=== PATIENT | male | born 1950 | race Caucasian/White ===

== ENCOUNTER 2020-09-14 18:37 | Observation (INO) | payer MEDICARE ==
--- NOTE | 2020-09-14 19:01 | ED ---
General Adult HPI - General Chief complaint: Abdominal Pain Stated complaint: Abdominal Time Seen by Provider: 09/14/20 18:55 Source: patient, family, RN notes reviewed Mode of arrival: ambulatory Limitations: no limitations - History of Present Illness Initial comments: Patient is a pleasant [age]-year-old male presenting to the emergency Department with complaints of abdominal discomfort. Onset of symptoms was 3-4 days ago. Symptoms worsened since onset. Discomfort is mild at rest but severe with certain movements and position changes. No history of similar symptoms previously. Discomfort was more mid abdomen however now is right lower quadrant. Patient has had some mild nausea and decreased appetite. No vomiting. No constipation or diarrhea. No fever. Patient did have outpatient computed tomography scan done at [facility] for appendicitis. Patient did have stress complication of IV fluid in his right arm however states the swelling has gone down and no significant discomfort at this time. - Related Data Allergies Allergy/AdvReac Type Severity Reaction Status Date / Time No Known Allergies Allergy Verified 09/14/20 18:44 Review of Systems ROS Statement: Those systems with pertinent positive or pertinent negative responses have been documented in the HPI. ROS Other: All systems not noted in ROS Statement are negative. Constitutional: Denies: fever Eyes: Denies: eye pain ENT: Denies: ear pain Respiratory: Denies: cough Cardiovascular: Denies: chest pain Endocrine: Denies: fatigue Gastrointestinal: Reports: abdominal pain, nausea. Denies: vomiting Genitourinary: Denies: dysuria Musculoskeletal: Denies: back pain Skin: Denies: rash Neurological: Denies: weakness Past Medical History Past Medical History: Hypertension History of Any Multi-Drug Resistant Organisms: None Reported Past Surgical History: No Surgical Hx Reported Past Psychological History: No Psychological Hx Reported Smoking Status: Current every day smoker Past Alcohol Use History: None Reported Past Drug Use History: None Reported General Exam Limitations: no limitations General appearance: alert, in no apparent distress Head exam: Present: normocephalic Eye exam: Present: normal appearance Neck exam: Present: normal inspection Respiratory exam: Present: normal lung sounds bilaterally Cardiovascular Exam: Present: regular rate, normal rhythm GI/Abdominal exam: Present: soft, tenderness (Moderate tenderness right lower quadrant). Absent: distended, guarding, rebound, rigid Extremities exam: Present: normal inspection Neurological exam: Present: alert Psychiatric exam: Present: normal affect, normal mood Skin exam: Present: normal color Course Vital Signs 09/14/20 18:41 Temperature 97.7 F Pulse Rate 83 Respiratory 20 Rate Blood Pressure 142/68 O2 Sat by Pulse 98 Oximetry - Reevaluation(s) Reevaluation #1: 09/14/20 19:05 Patient updated on results and plan. Dr. Dorantes paged for surgical call. Medical Decision Making - Medical Decision Making Case was discussed with Dr. Dorantes, who will admit and come evaluate for possible surgery today. - Radiology Data Radiology results: report reviewed (From [facility]: CT abdomen and pelvis shows dilated appendix 1.5 cm with infiltration of. Appendiceal fat suggesting acute appendicitis.) Disposition Clinical Impression: Acute appendicitis Disposition: ADMITTED IP TO THIS HOSP Is patient prescribed a controlled substance at d/c from ED?: No Referrals: Regino Lassiter NPC [Primary Care Provider] - 1-2 days Decision Time: 19:06
[2020-09-14] MEDS ORDERED: PANTOPRAZOLE 40 MG/10 ML VIAL IVP STA (19:02)
[2020-09-14] MEDS ORDERED: SODIUM CHLORIDE 0.9% 1,000 ML IV STA (19:02)
[2020-09-14] MEDS ORDERED: NALOXONE 0.4 MG/ML 1 ML VIAL IV PRN (19:31)
[2020-09-14] MEDS ORDERED: MORPHINE SULFATE 4 MG/ML SYRINGE IV PRN (19:31)
[2020-09-14] MEDS ORDERED: PIPERACILLIN-TAZOBACTAM 3.375 GM in SODIUM CHLORIDE 0.9% 100 ML IVPB STA (19:34)
[2020-09-14 19:53] LABS: Basophils % (A) 0 %; Eosinophils # (A) 0.2 k/uL (0-0.7); Eosinophils % (A) 2 %; HCT 38.8 % (39.0-53.0); HGB 13.7 gm/dL (13.0-17.5); Lymphocytes # (A) 1.4 k/uL (1.0-4.8); Lymphocytes % (A) 14 %; MCH 30.5 pg (25.0-35.0); MCHC 35.3 g/dL (31.0-37.0); MCV 86.4 fL (80.0-100.0); Mean Platelet Volume 7.4; Monocytes # (A) 0.9 k/uL (0-1.0); Monocytes % (A) 8 %; Neutrophils # (A) 7.9 k/uL (1.3-7.7); Neutrophils % (A) 74 %; Platelet Count 351 k/uL (150-450); RBC 4.49 m/uL (4.30-5.90); RDW 12.6 % (11.5-15.5); WBC 10.6 k/uL (3.8-10.6)
[2020-09-14 20:02] LABS: INR 0.9 (<1.2); Partial Thromboplastin Time 25.9 sec (22.0-30.0); Prothrombin Time 9.9 sec (9.0-12.0)
[2020-09-14 20:03] LABS: ALT 20 U/L (4-49); AST 24 U/L (17-59); African American GFR (CKD) >90 (>60 ml/min/1.73 sqM); Albumin 4.3 g/dL (3.5-5.0); Alkaline Phosphatase 105 U/L (38-126); Amylase 39 U/L (30-110); Anion Gap 11 mmol/L; Blood Urea Nitrogen 15 mg/dL (9-20); Calcium 9.8 mg/dL (8.4-10.2); Carbon Dioxide 25 mmol/L (22-30); Chloride 103 mmol/L (98-107); Glucose 103 mg/dL (74-99); Lipase 26 U/L (23-300); Non-African American GFR(CKD) >90 (>60 ml/min/1.73 sqM); Potassium 3.6 mmol/L (3.5-5.1); Sodium 139 mmol/L (137-145); Total Bilirubin 0.5 mg/dL (0.2-1.3); Total Protein 7.2 g/dL (6.3-8.2)
[2020-09-15] MEDS: PIPERACILLIN-TAZOBACTAM 3.375 GM in SODIUM CHLORIDE 0.9% 100 ML IVPB SCH ×2 (01:35→11:08)
[2020-09-15] MEDS ORDERED: SODIUM CHLORIDE 0.9% 300 ML IV ONE (06:06)
--- NOTE | 2020-09-15 06:06 | P.GSHP ---
History of Present Illness H&P Date: 09/15/20 Chief Complaint: Acute appendicitis 70-year-old male here in the hospital for acute appendicitis. Patient had an outpatient CAT scan performed at an outside hospital and came to the ER yesterday evening. Pain began 4-5 days ago. Was initially more vague in location now on the right lower quadrant. No fevers. Some nausea. No vomiting. Appetite diminished. No change in bowel habits. No history of similar events. CAT scan shows a thickened appendix diffusely from the tip to the base. There are a few small calcifications in the mesentery however no obvious lymphadenopathy is seen. There is no evidence of tumor at the base of the appendix at this time by CAT scan. He did have a colonoscopy 1 year ago he says was normal. - Review of Systems Comment: The patient denies any acute changes in vision or hearing, no dysphagia or odynophagia, no chest pain or shortness of breath, no dysuria or hematuria, no headache, no runny nose, no rectal bleeding or melena, no unexplained weight loss Past Medical History Past Medical History: Hypertension History of Any Multi-Drug Resistant Organisms: None Reported Past Surgical History: Back Surgery Additional Past Surgical History / Comment(s): Bone spur between L4-L5 Past Anesthesia/Blood Transfusion Reactions: No Reported Reaction Past Psychological History: No Psychological Hx Reported Smoking Status: Current every day smoker Past Alcohol Use History: None Reported Past Drug Use History: None Reported Medications and Allergies Home Medications Medication Instructions Recorded Confirmed Type Aspirin EC [Ecotrin] 325 mg PO DAILY 09/14/20 09/14/20 History Losartan Potassium 100 mg PO DAILY 09/14/20 09/14/20 History Multivit-Min/FA/Lycopen/Lutein 1 tab PO DAILY 09/14/20 09/14/20 History [Centrum Silver Men Tablet] Sertraline HCl [Zoloft] 25 mg PO DAILY 09/14/20 09/14/20 History amLODIPine [Norvasc] 10 mg PO DAILY 09/14/20 09/14/20 History atenoloL [Atenolol] 25 mg PO DAILY 09/14/20 09/14/20 History hydroCHLOROthiazide 50 mg PO DAILY 09/14/20 09/14/20 History Allergies Allergy/AdvReac Type Severity Reaction Status Date / Time No Known Allergies Allergy Verified 09/14/20 19:45 Surgical - Exam Vital Signs Temp Pulse Resp BP Pulse Ox 97.7 F 83 20 142/68 98 09/14/20 18:41 09/14/20 18:41 09/14/20 18:41 09/14/20 18:41 09/14/20 18:41 Physical exam: General: Well-developed, well-nourished HEENT: Normocephalic, sclerae nonicteric Abdomen: Right lower quadrant tenderness, nondistended Extremities: No edema Neuro: Alert and oriented Results - Labs 09/14/20 19:36 09/14/20 19:36 Abnormal Lab Results - Last 24 Hours (Table) 09/14/20 09/14/20 Range/Units 19:36 19:36 Hct 38.8 L (39.0-53.0) % Neutrophils # 7.9 H (1.3-7.7) k/uL Creatinine 0.59 L (0.66-1.25) mg/dL Glucose 103 H (74-99) mg/dL Diabetes panel 09/14/20 Range/Units 19:36 Sodium 139 (137-145) mmol/L Potassium 3.6 (3.5-5.1) mmol/L Chloride 103 (98-107) mmol/L Carbon Dioxide 25 (22-30) mmol/L BUN 15 (9-20) mg/dL Creatinine 0.59 L (0.66-1.25) mg/dL Glucose 103 H (74-99) mg/dL Calcium 9.8 (8.4-10.2) mg/dL AST 24 (17-59) U/L ALT 20 (4-49) U/L Alkaline Phosphatase 105 (38-126) U/L Total Protein 7.2 (6.3-8.2) g/dL Albumin 4.3 (3.5-5.0) g/dL Calcium panel 09/14/20 Range/Units 19:36 Calcium 9.8 (8.4-10.2) mg/dL Albumin 4.3 (3.5-5.0) g/dL Pituitary panel 09/14/20 Range/Units 19:36 Sodium 139 (137-145) mmol/L Potassium 3.6 (3.5-5.1) mmol/L Chloride 103 (98-107) mmol/L Carbon Dioxide 25 (22-30) mmol/L BUN 15 (9-20) mg/dL Creatinine 0.59 L (0.66-1.25) mg/dL Glucose 103 H (74-99) mg/dL Calcium 9.8 (8.4-10.2) mg/dL Adrenal panel 09/14/20 Range/Units 19:36 Sodium 139 (137-145) mmol/L Potassium 3.6 (3.5-5.1) mmol/L Chloride 103 (98-107) mmol/L Carbon Dioxide 25 (22-30) mmol/L BUN 15 (9-20) mg/dL Creatinine 0.59 L (0.66-1.25) mg/dL Glucose 103 H (74-99) mg/dL Calcium 9.8 (8.4-10.2) mg/dL Total Bilirubin 0.5 (0.2-1.3) mg/dL AST 24 (17-59) U/L ALT 20 (4-49) U/L Alkaline Phosphatase 105 (38-126) U/L Total Protein 7.2 (6.3-8.2) g/dL Albumin 4.3 (3.5-5.0) g/dL Assessment and Plan (1) Acute appendicitis Narrative/Plan: Will proceed with laparoscopic, possible open appendectomy at this time. Risks of bleeding, infection, abscess, bladder and bowel injury, conversion to an open procedure, possible need for further surgeries reviewed. He understands and wishes to proceed. Current Visit: Yes Status: Acute Code(s): K35.80 - UNSPECIFIED ACUTE APPENDICITIS SNOMED Code(s): 23481883
[2020-09-15] MEDS ORDERED: PHENYLEPHRINE-0.9% NACL SYG 1,000 MCG/10 ML SYRINGE ONE (06:07)
[2020-09-15] MEDS ORDERED: DEXAMETHASONE SOD PHOSPHATE 10 MG/ML 1 ML VIAL ONE (06:07)
[2020-09-15] MEDS ORDERED: ONDANSETRON 4 MG/2 ML VIAL ONE (06:07)
[2020-09-15] MEDS ORDERED: fentaNYL (PF) 50 MCG/ML 2 ML AMP ONE (06:07)
[2020-09-15] MEDS ORDERED: GLYCOPYRROLATE 0.2 MG/ML 2 ML VIAL ONE (06:07)
[2020-09-15] MEDS ORDERED: NEOSTIGMINE 1 MG/ML 10 ML VIAL ONE (06:07)
[2020-09-15] MEDS ORDERED: SUCCINYLCHOLINE CHLORIDE 100 MG/5 ML SYR IV ONE (06:07)
[2020-09-15] MEDS ORDERED: KETOROLAC 15 MG/ML 1 ML VIAL ONE (06:07)
[2020-09-15] MEDS ORDERED: MIDAZOLAM 2 MG/2 ML VIAL ONE (06:07)
[2020-09-15] MEDS ORDERED: PROPOFOL 10 MG/ML 20 ML VIAL IV ONE (06:07)
[2020-09-15] MEDS ORDERED: LIDOCAINE 1% INJ 10MG/ML (20 ML MDV) ONE (06:07)
[2020-09-15] MEDS ORDERED: ROCURONIUM 10 MG/ML (5 ML VIAL) IV ONE (06:07)
[2020-09-15] MEDS ORDERED: BUPIVACAINE (PF) 0.5% 30 ML VIAL SQ ONE ×2 (06:22)
[2020-09-15] MEDS ORDERED: LACTATED RINGERS 1,000 ML IV ONE (06:22)
[2020-09-15] MEDS ORDERED: HYDROmorphone 0.5 MG/0.5 ML SYRINGE IVP ONE ×2 (07:16→07:30)
[2020-09-15] MEDS ORDERED: ACETAMINOPHEN TAB 325 MG TAB PO PRN (07:16)
[2020-09-15] MEDS ORDERED: HYDROmorphone 0.5 MG/0.5 ML SYRINGE IVP PRN (07:16)
[2020-09-15] MEDS ORDERED: HYDROcodone/APAP 5-325MG 1 EACH TAB PO PRN (07:16)
[2020-09-15] MEDS ORDERED: ONDANSETRON 4 MG/2 ML VIAL IVP PRN (07:16)
--- NOTE | 2020-09-15 07:21 | P.OP ---
Date of Procedure: 09/15/20 Procedure(s) Performed: PREOPERATIVE DIAGNOSIS: Acute appendicitis POSTOPERATIVE DIAGNOSIS: Same PROCEDURE: Laparoscopic appendectomy SURGEON: Rafael EBL: 5 mL ANESTHESIA: General COMPLICATIONS: None OPERATIVE PROCEDURE: The patient was brought and placed on the operating table in the supine position. The patient was placed under general anesthesia. The abdomen was prepped and draped in the usual sterile fashion. A small vertical infraumbilical incision was made. The fascia was retracted anteriorly with Lewis forceps. The Veress needle was advanced into the peritoneal cavity. The saline drop test was normal. Insufflation took place to 15 mmHg. A 5 mm trocar was then placed. An additional 5 mm suprapubic trocar was placed under direct visualization as well as a 12 mm left lower quadrant trocar under direct visualization. The appendix was inspected. It was acutely inflamed. The mesoappendix was dissected using the LigaSure device. The inflammatory changes extended into the base of the appendix. For that reason the stapler was fired slightly more proximal base of the appendix. We stayed well away from the ileocecal valve. The area was then irrigated. No further purulence or bleeding was seen. The appendix was brought out of the peritoneal cavity through the left lower quadrant trocar site with an Endo Catch bag. The fascia at the 12 mm site was closed using a Alon-Itz 0 Vicryl stitch. The skin at all 3 sites was closed using 4-0 Monocryl sutures. Skin glue was then applied. DISPOSITION: Stable to recovery room
[2020-09-15 07:30] VITALS: RESP 16
[2020-09-15] MEDS ORDERED: HEPARIN SODIUM,PORCINE/PF 5,000 UNIT/0.5 ML SYRINGE SQ SCH (08:00)
[2020-09-15 08:27] VITALS: TEMP 97.4
[2020-09-15] MEDS ORDERED: PANTOPRAZOLE 40 MG/10 ML VIAL IV SCH (09:00)
[2020-09-15] MEDS ORDERED: DOCUSATE 100 MG CAP PO SCH (09:00)
[2020-09-15 10:30] VITALS: BP 134/73; PULSE 75
--- NOTE | 2020-09-15 10:48 | P.CONS ---
History of Present Illness - Reason for Consult Essential hypertension - History of Present Illness Patient is a pleasant 70-year-old male came in with abdominal pain found to have acute appendicitis patient underwent appendectomy. Patient is presently on Zosyn. Patient does have history of hypertension is in for aneurysm medications patient didn't receive any of these medications yet. REVIEW OF SYSTEMS: CONSTITUTIONAL: No fever, no malaise, no fatigue. HEENT: No recent visual problems or hearing problems. Denied any sore throat. CARDIOVASCULAR: No chest pain, orthopnea, PND, no palpitations, no syncope. PULMONARY: No shortness of breath, no cough, no hemoptysis. GASTROINTESTINAL: No diarrhea, no nausea, no vomiting, no abdominal pain. NEUROLOGICAL: No headaches, no weakness, no numbness. HEMATOLOGICAL: Denies any bleeding or petechiae. GENITOURINARY: Denies any burning micturition, frequency, or urgency. MUSCULOSKELETAL/RHEUMATOLOGICAL: Denies any joint pain, swelling, or any muscle pain. ENDOCRINE: Denies any polyuria or polydipsia. The rest of the 14-point review of systems is negative. PHYSICAL EXAMINATION: GENERAL: The patient is alert and oriented x3, not in any acute distress. Well developed, well nourished. HEENT: Pupils are round and equally reacting to light. EOMI. No scleral icterus. No conjunctival pallor. Normocephalic, atraumatic. No pharyngeal erythema. No thyromegaly. CARDIOVASCULAR: S1 and S2 present. No murmurs, rubs, or gallops. PULMONARY: Chest is clear to auscultation, no wheezing or crackles. ABDOMEN: Soft, nontender, nondistended, normoactive bowel sounds. No palpable organomegaly. Surgical site areas appear to be clean MUSCULOSKELETAL: No joint swelling or deformity. EXTREMITIES: No cyanosis, clubbing, or pedal edema. NEUROLOGICAL: Gross neurological examination did not reveal any focal deficits. SKIN: No rashes. Assessment and plan -Essential hypertension: Patient is expected to have perioperative hypotension at home it appears like patient blood pressures are already low sweaty, and to discontinue hydrochlorothiazide completely cut down the dose of losartan. For next couple days ago under the patient to hold off losartan and check the blood pressures at home if they start going up patient can start taking this m edication patient can resume amlodipine and atenolol. Patient most probably will be discharged today unfortunately did not have enough time to titrate his medications here as an inpatient and this can be done as an outpatient. Low- salt diet was advised -Acute appendicitis: Status post appendectomy and patient is on Zosyn [place]- nicotine use: Counseling was provided DVT prophylaxis: Past Medical History Past Medical History: Hypertension History of Any Multi-Drug Resistant Organisms: None Reported Past Surgical History: Back Surgery Additional Past Surgical History / Comment(s): Bone spur between L4-L5 Past Anesthesia/Blood Transfusion Reactions: No Reported Reaction Past Psychological History: No Psychological Hx Reported Smoking Status: Current every day smoker Past Alcohol Use History: None Reported Past Drug Use History: None Reported Medications and Allergies Home Medications Medication Instructions Recorded Confirmed Type Aspirin EC [Ecotrin] 325 mg PO DAILY 09/14/20 09/14/20 History Losartan Potassium 100 mg PO DAILY 09/14/20 09/14/20 History Multivit-Min/FA/Lycopen/Lutein 1 tab PO DAILY 09/14/20 09/14/20 History [Centrum Silver Men Tablet] Sertraline HCl [Zoloft] 25 mg PO DAILY 09/14/20 09/14/20 History amLODIPine [Norvasc] 10 mg PO DAILY 09/14/20 09/14/20 History atenoloL [Atenolol] 25 mg PO DAILY 09/14/20 09/14/20 History hydroCHLOROthiazide 50 mg PO DAILY 09/14/20 09/14/20 History oxyCODONE HCL [OxyIR] 5 mg PO Q6H PRN 3 Days #6 tab 09/15/20 Rx Allergies Allergy/AdvReac Type Severity Reaction Status Date / Time No Known Allergies Allergy Verified 09/14/20 19:45 Physical Exam Vitals: Vital Signs Temp Pulse Pulse Pulse Resp BP BP 09/15/20 10:20 75 09/15/20 10:05 74 09/15/20 09:50 74 09/15/20 09:35 75 09/15/20 09:20 78 09/15/20 09:05 74 09/15/20 08:40 76 09/15/20 08:21 97.4 F L 64 16 09/15/20 07:35 69 16 09/15/20 07:20 60 16 09/15/20 07:06 98.1 F 99 12 09/15/20 05:18 98.1 F 82 17 119/66 09/15/20 01:42 98.4 F 67 17 110/64 09/14/20 21:30 18 09/14/20 21:27 98.2 F 77 18 140/67 09/14/20 21:13 98.4 F 79 16 139/78 09/14/20 18:41 97.7 F 83 20 142/68 BP Pulse Ox 09/15/20 10:20 134/73 95 09/15/20 10:05 129/74 95 09/15/20 09:50 133/78 96 09/15/20 09:35 135/79 96 09/15/20 09:20 146/71 96 09/15/20 09:05 135/70 95 09/15/20 08:40 127/71 94 L 09/15/20 08:21 122/72 93 L 09/15/20 07:35 141/68 94 L 09/15/20 07:20 138/75 100 09/15/20 07:06 143/84 99 09/15/20 05:18 95 09/15/20 01:42 94 L 09/14/20 21:30 09/14/20 21:27 98 09/14/20 21:13 98 09/14/20 18:41 98 Intake and Output 09/14/20 09/15/20 09/15/20 22:59 06:59 14:59 Intake Total 600 100 Output Total 2 Balance 598 100 Intake: IV 600 100 Output: Estimated Blood Loss 2 Other: Voiding Method Toilet Weight 77.111 kg Results CBC & Chem 7: 09/14/20 19:36 09/14/20 19:36 Labs: Abnormal Lab Results - Last 24 Hours (Table) 09/14/20 09/14/20 Range/Units 19:36 19:36 Hct 38.8 L (39.0-53.0) % Neutrophils # 7.9 H (1.3-7.7) k/uL Creatinine 0.59 L (0.66-1.25) mg/dL Glucose 103 H (74-99) mg/dL
[2020-09-16] MEDS ORDERED: atenoloL 25 MG TAB PO SCH (09:00)
[2020-09-16] MEDS ORDERED: LOSARTAN 50 MG TAB PO SCH (09:00)
[2020-09-16] MEDS ORDERED: MULTIVITAMINS, THERA 1 EACH TAB PO SCH (09:00)
[2020-09-16] MEDS ORDERED: SERTRALINE 25 MG TAB PO SCH (09:00)
[2020-09-16] MEDS ORDERED: ASPIRIN 325 MG TAB PO SCH (09:00)
== END 2020-09-15 14:02 | disposition home or self-care (01) ==
LOC: EC 18:37 → 4SSUR 19:32
PROVIDERS: ADMIT Surgery; ATTEND Surgery
DX: K35.80 Unspecified acute appendicitis (principal); I10 Essential (primary) hypertension; F17.200 Nicotine dependence, unspecified, uncomplicated; Z79.82 Long term (current) use of aspirin; Z98.890 Other specified postprocedural states; Z79.899 Other long term (current) drug therapy
CPT/HCPCS: 96374; 99284; 80053; 82150; 83605; 83690; 85025; 85610; 85730; 87040; 44970; G0378 ×2; J2543 ×2; J2250; J1100; J2710; J2405; J2001; J3010; J1885; J2370; J0330; J2704; C9113 ×2; J1170; 88304

== ENCOUNTER 2023-06-07 13:28 | Inpatient (IN) | payer MEDICARE ==
--- NOTE | 2023-06-07 14:29 | ED ---
General Adult HPI - General Chief complaint: ENT Stated complaint: Can't swallow SOB Time Seen by Provider: 06/07/23 13:43 Source: patient, family, RN notes reviewed, old records reviewed Mode of arrival: ambulatory Limitations: no limitations - History of Present Illness Initial comments: 72-year-old male with recent diagnosis of dermatomyositis presenting for evaluation of shortness of breath and difficulty swallowing. Patient states that he is currently on 20 mg of prednisone daily. He was diagnosed with dermatomyositis through skin biopsy performed several weeks prior. He has developed some mild shortness of breath as well as upper respiratory symptoms including nasal congestion. He states he is having increased difficulty swallowing even liquids. - Related Data Home Medications Medication Instructions Recorded Confirmed Aspirin EC [Ecotrin] 325 mg PO DAILY 09/14/20 09/14/20 Losartan Potassium 100 mg PO DAILY 09/14/20 09/14/20 Mv-Min/Folic/K1/Lycopen/Lutein 1 tab PO DAILY 09/14/20 09/14/20 [Centrum Silver Men Tablet] Sertraline HCl [Zoloft] 25 mg PO DAILY 09/14/20 09/14/20 amLODIPine [Norvasc] 10 mg PO DAILY 09/14/20 09/14/20 atenoloL 25 mg PO DAILY 09/14/20 09/14/20 hydroCHLOROthiazide 50 mg PO DAILY 09/14/20 09/14/20 Previous Rx's Medication Instructions Recorded oxyCODONE HCL [OxyIR] 5 mg PO Q6H PRN 3 Days #6 tab 09/15/20 Allergies Allergy/AdvReac Type Severity Reaction Status Date / Time No Known Allergies Allergy Verified 06/07/23 13:38 Review of Systems ROS Statement: Those systems with pertinent positive or pertinent negative responses have been documented in the HPI. ROS Other: All systems not noted in ROS Statement are negative. Past Medical History Past Medical History: Hypertension History of Any Multi-Drug Resistant Organisms: None Reported Past Surgical History: Back Surgery Additional Past Surgical History / Comment(s): Bone spur between L4-L5 Past Anesthesia/Blood Transfusion Reactions: No Reported Reaction Past Psychological History: No Psychological Hx Reported Smoking Status: Current every day smoker Past Alcohol Use History: None Reported Past Drug Use History: None Reported General Exam Limitations: no limitations General appearance: alert, in no apparent distress Head exam: Present: atraumatic, normocephalic Eye exam: Present: normal appearance, PERRL ENT exam: Present: normal oropharynx Neck exam: Present: normal inspection. Absent: tenderness, meningismus Respiratory exam: Present: normal lung sounds bilaterally. Absent: respiratory distress, wheezes Cardiovascular Exam: Present: regular rate, normal rhythm GI/Abdominal exam: Present: soft. Absent: distended, tenderness Neurological exam: Present: alert, oriented X3, CN II-XII intact. Absent: motor sensory deficit Skin exam: Present: warm, intact, erythema (Rash) Course Vital Signs 06/07/23 13:33 Temperature 98.0 F Pulse Rate 72 Respiratory 20 Rate Blood Pressure 135/69 O2 Sat by Pulse 100 Oximetry Medical Decision Making - Medical Decision Making Was pt. sent in by a medical professional or institution (Dr. PA, COMMUNITY HEALTH SPECIALIST, urgent care, hospital, or fci...) When possible be specific @ -No Did you speak to anyone other than the patient for history (EMS, parent, family, police, friend...)? What history was obtained from this source @ -No Did you review nursing and triage notes (agree or disagree)? Why? @ -I reviewed and agree with nursing and triage notes Were old charts reviewed (outside hosp., previous admission, EMS record, old EKG, old radiological studies, urgent care reports/EKG's, fci records)? Report findings @ -No old charts were reviewed Differential Diagnosis (chest pain, altered mental status, abdominal pain women, abdominal pain men, vaginal bleeding, weakness, fever, dyspnea, syncope, headache, dizziness, GI bleed, back pain, seizure, CVA, palpatations, mental health, musculoskeletal)? @ -Muscle weakness secondary to dermatomyositis, esophageal mass, esophageal dysmotility EKG interpreted by me (3pts min.). @ -As above X-rays interpreted by me (1pt min.). @ -Chest x-ray negative for acute cardiopulmonary findings CT interpreted by me (1pt min.). @ -None done U/S interpreted by me (1pt. min.). @ -None done What testing was considered but not performed or refused? (CT, X-rays, U/S, labs)? Why? @ -None What meds were considered but not given or refused? Why? @ -None Did you discuss the management of the patient with other professionals (professionals i.e. , PA, COMMUNITY HEALTH SPECIALIST, lab, RT, psych nurse, social service technician, laboratory cureman, teacher, helicopter officer, welfare case worker)? Give summary @ -No Was smoking cessation discussed for >3mins.? @ -No Was critical care preformed (if so, how long)? @ -No Were there social determinants of health that impacted care today? How? (Homelessness, low income, unemployed, alcoholism, drug addiction, transportation, low edu. Level, literacy, decrease access to med. care, usp, rehab)? @ -No Was there de-escalation of care discussed even if they declined (Discuss DNR or withdrawal of care, Hospice)? DNR status @ -No What co-morbidities impacted this encounter? (DM, HTN, Smoking, COPD, CAD, Cancer, CVA, ARF, Chemo, Hep., AIDS, mental health diagnosis, sleep apnea, morbid obesity)? @Dermatomyositis Was patient admitted / discharged? Hospital course, mention meds given and route, prescriptions, significant lab abnormalities, going to OR and other pertinent info. @72-year-old male with difficulty swallowing, mild shortness of breath. Patient vital signs are stable. He has been having increased difficulty keeping his medications down including prednisone. Patient given IV fluids and IV steroids in the emergency department. He will benefit from a burst of IV steroids. He will be admitted to internal medicine, case discussed with Dr. Mckay who will accept. Undiagnosed new problem with uncertain prognosis? @ -No Drug Therapy requiring intensive monitoring for toxicity (Heparin, Nitro, Insulin, Cardizem)? @ -No Were any procedures done? @ -No Diagnosis/symptom? @ -[Muscle weakness, difficulty swallowing, dermatomyositis Acute, or Chronic, or Acute on Chronic? @ -Acute on chronic Uncomplicated (without systemic symptoms) or Complicated (systemic symptoms)? @ -Default Side effects of treatment? @ -No Exacerbation, Progression, or Severe Exacerbation? @ -No Poses a threat to life or bodily function? How? (Chest pain, [place], [place], pneumonia, PE, COPD, DKA, ARF, appy, cholecystitis, CVA, Diverticulitis, Homicidal, Suicidal, threat to staff... and all critical care pts) @Low risk at this time - Lab Data Result diagrams: 06/07/23 15:05 06/07/23 15:05 Lab Results 06/07/23 06/07/23 06/07/23 Range/Units 15:05 15:05 15:05 WBC 11.6 H (3.8-10.6) k/uL RBC 4.53 (4.30-5.90) m/uL Hgb 13.9 (13.0-17.5) gm/dL Hct 42.8 (39.0-53.0) % MCV 94.4 (80.0-100.0) fL MCH 30.7 (25.0-35.0) pg MCHC 32.5 (31.0-37.0) g/dL RDW 13.6 (11.5-15.5) % Plt Count 253 (150-450) k/uL MPV 9.0 Neutrophils % 85 % Lymphocytes % 6 % Monocytes % 8 % Eosinophils % 0 % Basophils % 0 % Neutrophils # 9.9 H (1.3-7.7) k/uL Lymphocytes # 0.7 L (1.0-4.8) k/uL Monocytes # 0.9 (0-1.0) k/uL Eosinophils # 0.0 (0-0.7) k/uL Basophils # 0.0 (0-0.2) k/uL Sodium 137 (137-145) mmol/L Potassium 4.9 (3.5-5.1) mmol/L Chloride 107 (98-107) mmol/L Carbon Dioxide 19 L (22-30) mmol/L Anion Gap 11 mmol/L BUN 21 H (9-20) mg/dL Creatinine 0.64 L (0.66-1.25) mg/dL Est GFR (CKD-EPI)AfAm >90 (>60 ml/min/1.73 sqM) Est GFR (CKD-EPI)NonAf >90 (>60 ml/min/1.73 sqM) Glucose 85 (74-99) mg/dL Calcium 9.2 (8.4-10.2) mg/dL Total Bilirubin 1.0 (0.2-1.3) mg/dL AST 99 H (17-59) U/L ALT 48 (4-49) U/L Alkaline Phosphatase 69 (38-126) U/L Creatine Kinase 569 H (55-170) U/L C-Reactive Protein 0.7 (<1.0) mg/dL Total Protein 6.6 (6.3-8.2) g/dL Albumin 3.9 (3.5-5.0) g/dL Urine Color Colorless Urine Appearance Clear (Clear) Urine pH 6.5 (5.0-8.0) Ur Specific [place] 1.009 (1.001-1.035) Urine Protein Negative (Negative) Urine Glucose (UA) Negative (Negative) Urine Ketones Negative (Negative) Urine Blood Negative (Negative) Urine Nitrite Negative (Negative) Urine Bilirubin Negative (Negative) Urine Urobilinogen <2.0 (<2.0) mg/dL Ur Leukocyte Esterase Negative (Negative) Disposition Clinical Impression: Dermatomyositis, Difficulty swallowing pills Disposition: ADMITTED IP TO THIS [facility] Condition: Stable Is patient prescribed a controlled substance at d/c from ED?: No Referrals: Regino Lassiter NPC [Primary Care Provider] - 1-2 days Time of Disposition: 16:14
[2023-06-07] MEDS: SODIUM CHLORIDE 0.9% 1,000 ML IV ONE (15:11)
[2023-06-07 15:26] LABS: Basophils % (A) 0 %; Eosinophils % (A) 0 %; HCT 42.8 % (39.0-53.0); HGB 13.9 gm/dL (13.0-17.5); Lymphocytes # (A) 0.7 k/uL (1.0-4.8); Lymphocytes % (A) 6 %; MCH 30.7 pg (25.0-35.0); MCHC 32.5 g/dL (31.0-37.0); MCV 94.4 fL (80.0-100.0); Monocytes # (A) 0.9 k/uL (0-1.0); Monocytes % (A) 8 %; Neutrophils # (A) 9.9 k/uL (1.3-7.7); Neutrophils % (A) 85 %; Platelet Count 253 k/uL (150-450); RBC 4.53 m/uL (4.30-5.90); RDW 13.6 % (11.5-15.5); WBC 11.6 k/uL (3.8-10.6)
[2023-06-07 15:39] LABS: ALT 48 U/L (4-49); African American GFR (CKD) >90 (>60 ml/min/1.73 sqM); Albumin 3.9 g/dL (3.5-5.0); Anion Gap 11 mmol/L; Blood Urea Nitrogen 21 mg/dL (9-20); C Reactive Protein 0.7 mg/dL (<1.0); Calcium 9.2 mg/dL (8.4-10.2); Carbon Dioxide 19 mmol/L (22-30); Chloride 107 mmol/L (98-107); Creatine Kinase 569 U/L (55-170); Glucose 85 mg/dL (74-99); Non-African American GFR(CKD) >90 (>60 ml/min/1.73 sqM); Sodium 137 mmol/L (137-145); Total Protein 6.6 g/dL (6.3-8.2)
[2023-06-07 15:43] LABS: AST 99 U/L (17-59); Potassium 4.9 mmol/L (3.5-5.1)
[2023-06-07 15:44] LABS: Alkaline Phosphatase 69 U/L (38-126); Appearance,Urine Clear (Clear); Bilirubin,Urine Negative (Negative); Blood,Urine Negative (Negative); Color,Urine Colorless; Glucose,Urine (UA) Negative (Negative); Ketones,Urine Negative (Negative); Leukocyte Esterase,Urine Negative (Negative); Nitrite,Urine Negative (Negative); PH, Urine 6.5 (5.0-8.0); Protein,Urine Negative (Negative); Specific Gravity,Urine 1.009 (1.001-1.035); Urobilinogen,Urine <2.0 mg/dL (<2.0)
--- NOTE | 2023-06-07 16:04 | XR ---
EXAMINATION TYPE: XR chest 2V DATE OF EXAM: 06/07/2023 COMPARISON: NONE TECHNIQUE: PA and lateral views submitted. HISTORY: Shortness of breath FINDINGS: The lungs are clear and there is no pneumothorax, pleural effusion, or focal pneumonia. Heart size normal and no overt failure. Osseous structures demonstrate hypertrophic and degenerative changes of the spine. Postsurgical changes at the thoracolumbar junction. There is ectasia of the aorta. Other e tiologies not excluded. IMPRESSION: 1. No acute process. Retrocardiac density likely reflects ectatic aorta. Short-term follow-up CT of t he chest recommended.
[2023-06-07] MEDS ORDERED: NALOXONE 0.4 MG/ML 1 ML VIAL IV PRN ×2 (16:10→21:13)
[2023-06-07] MEDS: methylPREDNISolone SOD SUCCI 125 MG/2 ML VIAL IV STA (16:52)
[2023-06-07] MEDS: SODIUM CHLORIDE 0.9% 1,000 ML IV SCH (16:52)
[2023-06-07] MEDS: methylPREDNISolone SOD SUCCI 125 MG/2 ML VIAL IV SCH (18:14)
[2023-06-07] MEDS ORDERED: MAG HYDROX/AL HYDROX/SIMETH 30 ML CUP PO PRN (21:13)
[2023-06-07] MEDS ORDERED: oxyCODONE-APAP 5-325MG 1 EACH TAB PO PRN (21:13)
[2023-06-07] MEDS ORDERED: MELATONIN 3 MG TABLET PO PRN (21:13)
[2023-06-07] MEDS ORDERED: ACETAMINOPHEN TAB 325 MG TAB PO PRN (21:13)
[2023-06-07] MEDS ORDERED: ONDANSETRON 4 MG/2 ML VIAL IVP PRN (21:13)
[2023-06-08 07:50] LABS: ALT 44 U/L (4-49); AST 70 U/L (17-59); African American GFR (CKD) >90 (>60 ml/min/1.73 sqM); Albumin 3.4 g/dL (3.5-5.0); Albumin/Globulin Ratio 1.4; Alkaline Phosphatase 79 U/L (38-126); Anion Gap 10 mmol/L; Blood Urea Nitrogen 16 mg/dL (9-20); Carbon Dioxide 18 mmol/L (22-30); Chloride 109 mmol/L (98-107); Globulin 2.4 g/dL; Glucose 119 mg/dL (74-99); Non-African American GFR(CKD) >90 (>60 ml/min/1.73 sqM); Potassium 3.9 mmol/L (3.5-5.1); Sodium 137 mmol/L (137-145); Total Bilirubin 0.5 mg/dL (0.2-1.3); Total Protein 5.8 g/dL (6.3-8.2)
[2023-06-08 12:33] LABS: Erythrocyte Sedimentation Rate 21 mm/Hr (0-20)
[2023-06-08] MEDS ORDERED: RX INFO: IV CONTRAST WAS GIVEN 1 EACH MISC MISCELLANE PRN (13:44)
[2023-06-08] MEDS ORDERED: DEXTROSE 50% SYRINGE 50 ML IVP PRN ×2 (13:46)
[2023-06-08] MEDS: methylPREDNISolone SOD SUCCI 125 MG/2 ML VIAL IV SCH ×2 (14:33→18:45)
[2023-06-08] MEDS: amLODIPine 10 MG TAB PO SCH (14:38)
[2023-06-08] MEDS: atenoloL 25 MG TAB PO SCH (15:52)
--- NOTE | 2023-06-08 16:00 | CT ---
EXAMINATION TYPE: CT chest w con CT DLP: 391.4 mGycm, Automated exposure control for dose reduction was used. DATE OF EXAM: 06/08/2023 3:39 PM COMPARISON: None. CLINICAL INDICATION:Male, 72 years old with history of dysphagia, ectatic aorta; PHH, dysphagia, ecta tic aorta TECHNIQUE: Multiple axial images were obtained through the chest. Sagittal and coronal reformats were created for review. Contrast used:100 ml mL of Isovue 300 with IV Contrast (None if empty) Oral contrast used: (None if empty) FINDINGS: LUNGS/ PLEURA: The lung parenchyma appears unremarkable. AIRWAY: Patent and unremarkable. HEART: Size within normal limits.Increased density within the coronary arteries may relate to scleros is versus vascular stents. MEDIASTINUM: No gross evidence of adenopathy. VASCULATURE: Atherosclerotic calcifications are present throughout the aorta and its branches. MUSCULOSKELETAL: No acute osseous abnormalities. Remote compression deformity L1 vertebral body. SOFT TISSUES/LYMPH NODES: Unremarkable. LOWER NECK: No significant findings. UPPER ABDOMEN: No significant findings. IMPRESSION: 1. No evidence of acute process. 2. Remote compression deformity of the L1 vertebral body with approximately 25% height loss.
[2023-06-08 16:29] LABS: Glucose,Whole Blood 128 mg/dL (70-110)
[2023-06-08] MEDS: INSULIN ASPART (NovoLOG) 100 UNIT/ML VIAL SQ SCH (16:37)
[2023-06-08 20:28] LABS: Glucose,Whole Blood 145 mg/dL (70-110)
[2023-06-08] MEDS: PANTOPRAZOLE 40 MG/10 ML VIAL IVP SCH (20:31)
[2023-06-08] MEDS: HEPARIN SODIUM,PORCINE 5,000 UNIT/ML 1 ML VIAL SQ SCH (20:31)
--- NOTE | 2023-06-08 23:31 | HP ---
HISTORY AND PHYSICAL CHIEF COMPLAINT: Dysphagia. 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 Poly Operator made the diagnosis. The patient does not seem to be at the Poly Operator's care. The patient has some shortness of breath and difficulty swallowing. The patient is currently taking 20 mg of prednisone daily. The patient admitted for evaluation and treatment. The basic evaluation showed elevated WBC and rest of the labs are noted. COVID-19 testing was negative. A chest x-ray, which I reviewed personally showed some increased vascularity and possibly ectatic aorta. There is no history of any fever, rigors, or chills at this time. PAST MEDICAL HISTORY: History of hypertension, history of bladder cancer. Rest of the history and chart is also reviewed. HOME MEDICATIONS: Reviewed include prednisone. Dose and rest of medications reviewed. ALLERGIES: None. FAMILY HISTORY: No history of heart disease or strokes in the family. SOCIAL HISTORY: No history of smoking. REVIEW OF SYSTEMS: Fourteen-point review is negative except as mentioned earlier. PHYSICAL EXAMINATION: VITAL SIGNS: Pulse is 63, blood pressure 140/69, and respirations 16. HEENT: Conjunctivae normal. NECK: No JVD. CARDIOVASCULAR: S1, S2. RESPIRATION: Breath sounds diminished at the bases. No rhonchi, no crackles. ABDOMEN: Soft, nontender. LEGS: No edema. No swelling. NERVOUS SYSTEM: Nonfocal. SKIN: No ulcer, rash, bleeding. JOINTS: No active deforming arthropathy. LABORATORY DATA: WBC 11.6, otherwise, AST is 70. Rest of the labs are noted. ASSESSMENT: 1. Dysphagia for evaluation. 2. Recently diagnosed dermatitis. 3. Dermatomyositis. 4. Elevated AST. 5. Elevated creatine kinase with possible rhabdomyolysis. 6. Hypertension. 7. History of bladder cancer. 8. Ectatic aorta. 9. Degenerative joint disease. 10.History of nicotine dependence. RECOMMENDATIONS AND DISCUSSION: This 72-year-old gentleman presented with multiple complex medical issues. We will monitor the patient closely. We will recommend high-dose IV steroids. I would also recommend a barium swallow with speech pathology, dermatology evaluation. I would also recommend CT scan of the chest with contrast to rule out the possibility of ectatic aorta and other abnormalities. Otherwise, prognosis guarded because of multiple complex medical problems. See orders for details. MMODL / IJN: [id number] /
[2023-06-09 06:31] LABS: Glucose,Whole Blood 144 mg/dL (70-110)
[2023-06-09] MEDS: LOSARTAN 50 MG TAB PO SCH (07:49)
[2023-06-09] MEDS: MULTIVITAMINS, THERA 1 EACH TAB PO SCH (07:49)
[2023-06-09] MEDS: ASPIRIN 81 MG PO SCH (07:49)
[2023-06-09 08:25] LABS: Basophils # (A) 0 X 10*3/uL (0.00-0.10); Basophils % (A) 0 %; Eosinophils # (A) 0 X 10*3/uL (0.04-0.35); Eosinophils % (A) 0 %; HCT 33.4 % (39.6-50.0); HGB 11.2 g/dL (13.0-17.0); Lymphocytes # (A) 0.64 X 10*3/uL (0.90-5.00); Lymphocytes % (A) 9.3 %; MCH 30.5 pg (27.0-32.0); MCHC 33.5 g/dL (32.0-37.0); Mean Platelet Volume 10.8 FL (9.5-12.2); Monocytes # (A) 0.45 X 10*3/uL (0.20-1.00); Monocytes % (A) 6.6 %; NRBC Per 100 WBC 0 X 10*3/uL (0.00-0.01); Neutrophils # (A) 5.73 X 10*3/uL (1.80-7.70); Neutrophils % (A) 83.5 %; Platelet Count 207 X 10*3/uL (140-440); RBC 3.67 X 10*6/uL (4.40-5.60); RDW 13.9 % (11.5-14.5); WBC 6.86 X 10*3/uL (4.50-10.00)
[2023-06-09 08:44] LABS: Blood Urea Nitrogen 16.1 mg/dL (9.0-27.0); Calcium 9.2 mg/dL (8.7-10.3); Carbon Dioxide 21.4 mmol/L (21.6-31.8); Chloride 106 mmol/L (96-109); Glucose 155 mg/dL (70-110); Potassium 3.9 mmol/L (3.5-5.5); Sodium 138 mmol/L (135-145)
[2023-06-09] MEDS ORDERED: atenoloL 25 MG TAB PO SCH (09:00)
[2023-06-09] MEDS ORDERED: SERTRALINE 25 MG TAB PO SCH (09:00)
[2023-06-09] MEDS ORDERED: amLODIPine 10 MG TAB PO SCH (09:00)
[2023-06-09 11:29] LABS: Glucose,Whole Blood 144 mg/dL (70-110)
--- NOTE | 2023-06-09 13:27 | PN ---
PROGRESS NOTE DATE OF SERVICE: 06/09/2023 This 72-year-old gentleman, admitted with dysphagia and dermatomyositis, on high-dose IV steroids. The patient has some weakness. Speech Pathology following the patient closely with modified barium swallow. Otherwise, CT scan chest did not show any acute abnormality. Remote compression fracture of L1 was suspected with 25% height loss. PAST MEDICAL HISTORY: Reviewed. REVIEW OF SYSTEMS: Fourteen-point review is negative except as mentioned earlier. CURRENT MEDICATIONS: Reviewed, include IV steroids, doses and rest of medications noted. PHYSICAL EXAM: VITAL SIGNS: Pulse is 54, blood pressure 139/59, respirations 14. CHEST: Clear to auscultation. CARDIOVASCULAR: S1, S2. ABDOMEN: Soft and nontender. NERVOUS SYSTEM: Mild diffuse weakness, proximal. LABORATORY DATA: WBC 11.2. Rest of the labs are noted. ESR is 21 and CK is 569. ASSESSMENT: 1. Dysphagia for evaluation. 2. Recent diagnosis of dermatomyositis. 3. Elevated AST. 4. Elevated creatine kinase with possible mild rhabdomyolysis. 5. Hypertension. 6. History of bladder cancer. 7. Ectatic aorta. 8. Degenerative joint disease. 9. History of nicotine dependence. RECOMMENDATIONS AND DISCUSSION: Recommend to continue current management. Continue symptomatic treatment. Otherwise, we will proceed with modified barium swallow with the speech, and we will continue with rest of the medications. Will repeat CK. Guarded prognosis. Further recommendations to follow. See orders for further details. MMODL / IJN: [id number] /
--- NOTE | 2023-06-09 14:13 | P.GSCN ---
History of Present Illness Consult date: 06/09/23 History of present illness: CHIEF COMPLAINT: Dysphagia HISTORY OF PRESENT ILLNESS: This is a 72-year-old male who presented to the hospital with complaints of dysphagia for the past 2 weeks. Patient reports that symptoms have worsened over the last 3 days. Symptoms are worse with solid foods. He reports that it feels like things are sticking on 1 side of his throa t. Patient has had recent diagnosis of dermatomyositis. Patient does follow with a toe puncher. He is currently on IV steroids. Patient denies ever having an EGD. He denies any abdominal pain. Denies any nausea or vomiting. Patient currently tolerating a pured diet. PAST MEDICAL HISTORY: Bladder cancer, completed treatment in April 2023 PAST SURGICAL HISTORY: See below MEDICATIONS: See below ALLERGIES: See below SOCIAL HISTORY: No illicit drug use. REVIEW OF SYSTEMS: CONSTITUTIONAL: Denies fever or chills. HEENT: Denies blurred vision, vision changes, or eye pain. Denies hemoptysis CARDIOVASCULAR: Denies chest pain or pressure. RESPIRATORY: No shortness of breath. GASTROINTESTINAL: See HPI for pertinent findings HEMATOLOGIC: Denies bleeding disorders. GENITOURINARY: Denies any blood in urine or increased urinary frequency. SKIN: Denies pruitis. Denies rash. PHYSICAL EXAM: VITAL SIGNS: Reviewed GENERAL: Well-developed in no acute distress. HEENT: White plaques noted on tongue ABDOMEN: Soft. Nondistended. Nontender NEUROLOGIC: Alert and oriented. Cranial nerves II through XII grossly intact. LABORATORY DATA: WBC 11.6 down to 6.86 Hgb 11.2 platelets 207 Sodium 138 potassium 3.9 creatinine 0.5 IMAGING: Chest CT no evidence of acute process. Remote compression deformity at L1 vertebral body ASSESSMENT: 1. Dysphagia 2. History of dermatomyositis 3. Oral candidiasis PLAN: -Patient scheduled for EGD tomorrow with Dr. Banegas -N.p.o. after midnight -Follow-up on MBS results -Start nystatin swish and swallow for oral candidiasis Physician Electric Fork Operator note has been reviewed by physician. Signing provider agrees with the documented findings, assessment, and plan of care. Past Medical History Past Medical History: Cancer, Hypertension Additional Past Medical History / Comment(s): bladder CA 2022 History of Any Multi-Drug Resistant Organisms: None Reported Past Surgical History: Appendectomy, Back Surgery Additional Past Surgical History / Comment(s): Bone spur between L4-L5 Past Anesthesia/Blood Transfusion Reactions: No Reported Reaction Past Psychological History: No Psychological Hx Reported Smoking Status: Former smoker Past Alcohol Use History: None Reported Past Drug Use History: None Reported Medications and Allergies Home Medications Medication Instructions Recorded Confirmed Type Losartan Potassium 100 mg PO DAILY 09/14/20 06/07/23 History Mv-Min/Folic/K1/Lycopen/Lutein 1 tab PO DAILY 09/14/20 06/07/23 History [Centrum Silver Men Tablet] Sertraline HCl [Zoloft] 25 mg PO DAILY 09/14/20 06/07/23 History amLODIPine [Norvasc] 10 mg PO DAILY 09/14/20 06/07/23 History atenoloL 25 mg PO DAILY 09/14/20 06/07/23 History Aspirin EC [Ecotrin Low Dose] 81 mg PO DAILY 06/07/23 06/07/23 History predniSONE 10 mg PO BID 06/07/23 06/07/23 History Allergies Allergy/AdvReac Type Severity Reaction Status Date / Time No Known Allergies Allergy Verified 06/07/23 17:22 Surgical - Exam Vital Signs Temp Pulse Resp BP Pulse Ox 98.0 F 72 20 135/69 100 06/07/23 13:33 06/07/23 13:33 06/07/23 13:33 06/07/23 13:33 06/07/23 13:33 Results - Labs 06/09/23 03:55 06/09/23 03:55 Abnormal Lab Results - Last 24 Hours (Table) 06/08/23 06/08/23 06/09/23 Range/Units 16:27 20:26 03:55 RBC 3.67 L (4.40-5.60) X 10*6/uL Hgb 11.2 L (13.0-17.0) g/dL Hct 33.4 L (39.6-50.0) % Lymphocytes # 0.64 L (0.90-5.00) X 10*3/uL Eosinophils # 0 L (0.04-0.35) X 10*3/uL Carbon Dioxide (21.6-31.8) mmol/L Creatinine (0.6-1.5) mg/dL BUN/Creatinine Ratio (12.00-20.00) Ratio Glucose (70-110) mg/dL POC Glucose (mg/dL) 128 H 145 H (70-110) mg/dL 06/09/23 06/09/23 06/09/23 Range/Units 03:55 06:30 11:27 RBC (4.40-5.60) X 10*6/uL Hgb (13.0-17.0) g/dL Hct (39.6-50.0) % Lymphocytes # (0.90-5.00) X 10*3/uL Eosinophils # (0.04-0.35) X 10*3/uL Carbon Dioxide 21.4 L (21.6-31.8) mmol/L Creatinine 0.5 L (0.6-1.5) mg/dL BUN/Creatinine Ratio 32.20 H (12.00-20.00) Ratio Glucose 155 H (70-110) mg/dL POC Glucose (mg/dL) 144 H 144 H (70-110) mg/dL Diabetes panel 06/09/23 06/09/23 Range/Units 03:55 03:55 Sodium 138 (135-145) mmol/L Potassium 3.9 (3.5-5.5) mmol/L Chloride 106 (96-109) mmol/L Carbon Dioxide 21.4 L (21.6-31.8) mmol/L BUN 16.1 (9.0-27.0) mg/dL Creatinine 0.5 L (0.6-1.5) mg/dL Glucose 155 H (70-110) mg/dL Hemoglobin A1c 5.6 (<=6.0) % Calcium 9.2 (8.7-10.3) mg/dL Calcium panel 06/09/23 Range/Units 03:55 Calcium 9.2 (8.7-10.3) mg/dL Pituitary panel 06/09/23 Range/Units 03:55 Sodium 138 (135-145) mmol/L Potassium 3.9 (3.5-5.5) mmol/L Chloride 106 (96-109) mmol/L Carbon Dioxide 21.4 L (21.6-31.8) mmol/L BUN 16.1 (9.0-27.0) mg/dL Creatinine 0.5 L (0.6-1.5) mg/dL Glucose 155 H (70-110) mg/dL Calcium 9.2 (8.7-10.3) mg/dL Adrenal panel 06/09/23 Range/Units 03:55 Sodium 138 (135-145) mmol/L Potassium 3.9 (3.5-5.5) mmol/L Chloride 106 (96-109) mmol/L Carbon Dioxide 21.4 L (21.6-31.8) mmol/L BUN 16.1 (9.0-27.0) mg/dL Creatinine 0.5 L (0.6-1.5) mg/dL Glucose 155 H (70-110) mg/dL Calcium 9.2 (8.7-10.3) mg/dL
--- NOTE | 2023-06-09 14:39 | FL ---
EXAMINATION TYPE: FL barium swallow w video DATE OF EXAM: 06/09/2023 COMPARISON: NONE HISTORY: Difficulty swallowing dermatomyositis TECHNIQUE: Fluoroscopy. FINDINGS: Fluoroscopic guidance was provided for the procedure performed in conjunction with the [facility] pathology department. Please see complete report forthcoming from the Speech Pathology departmen t. Various consistencies from thin liquid to solids were administered. Fluoroscopy time 2 minutes 31 seconds. DAP: 235.25 Number of images: 0. There is deep aspiration with nectar thick liquids. No aspiration was evident. There is significant pooling observed in the vallecula. There was not normal propulsion of the bolus with several repeated swallows to transport. IMPRESSION: 1. Delayed swallowing with slow transit time. 2. Significant pooling within vallecula. 3. Deep penetration was noted with nectar thick consistency
[2023-06-09 16:29] LABS: Glucose,Whole Blood 132 mg/dL (70-110)
[2023-06-09] MEDS: NYSTATIN 100,000 UNIT/ML SUSP 500,000 UNIT/5 ML CUP PO SCH (17:22)
[2023-06-09 18:37] LABS: C Reactive Protein <0.30 mg/dL (0.00-0.80); Creatine Kinase 382 U/L (35-257)
[2023-06-09 20:04] LABS: Glucose,Whole Blood 166 mg/dL (70-110)
[2023-06-10 05:38] LABS: Glucose,Whole Blood 119 mg/dL (70-110)
[2023-06-10 08:29] LABS: Basophils # (A) 0.01 X 10*3/uL (0.00-0.10); Basophils % (A) 0.1 %; Eosinophils # (A) 0 X 10*3/uL (0.04-0.35); Eosinophils % (A) 0 %; HCT 33.7 % (39.6-50.0); HGB 11.2 g/dL (13.0-17.0); Lymphocytes # (A) 0.55 X 10*3/uL (0.90-5.00); Lymphocytes % (A) 7.2 %; MCH 30.2 pg (27.0-32.0); MCHC 33.2 g/dL (32.0-37.0); MCV 90.8 FL (80.0-97.0); Mean Platelet Volume 11.1 FL (9.5-12.2); Monocytes # (A) 0.63 X 10*3/uL (0.20-1.00); Monocytes % (A) 8.3 %; NRBC Per 100 WBC 0 X 10*3/uL (0.00-0.01); Neutrophils # (A) 6.37 X 10*3/uL (1.80-7.70); Platelet Count 206 X 10*3/uL (140-440); RBC 3.71 X 10*6/uL (4.40-5.60); RDW 13.8 % (11.5-14.5); WBC 7.59 X 10*3/uL (4.50-10.00)
[2023-06-10 08:45] LABS: Blood Urea Nitrogen 15.9 mg/dL (9.0-27.0); Carbon Dioxide 22.8 mmol/L (21.6-31.8); Chloride 109 mmol/L (96-109); Creatine Kinase 250 U/L (35-257); Glucose 124 mg/dL (70-110); Potassium 3.7 mmol/L (3.5-5.5); Sodium 141 mmol/L (135-145)
--- NOTE | 2023-06-10 09:07 | CDI ---
From: Sarah Roman Phone: [phone] Admit Date: 06/07/2023 04:10:00 PM Patient Name: Bryce Hogan Visit Number: [id number] Discharge Date: ATTENTION: The Clinical Documentation Specialists (CDI) and [facility] Coding Staff appreciate your assistance in clarifying documentation. Please respond to the clarification below the line at the bottom and electronically sign. The CDI & [facility] Coding staff will review the response and follow-up if needed. Please note: Queries are made part of the Legal Health Record. If you have any questions, please contact the author of this message via ITS. Dr. Louise Beauchamp Rhabdomyolysis is documented in the H&P 06/07 and in subsequent IM documentation. Additional clarification regarding the type of rhabdomyolysis is requested. History/Risk Factors: HTN, bladder cancer, recent diagnosis of dermatomyositis who presents with SOB and difficulty swallowing Clinical Indicators: 06/07 H&P, Assessment: "5. Elevated creatinine kinase with possible rhabdomyolysis." 06/06, 06/08 Creatinine Kinase: 569, 382 06/06-06/08 BUN: 21, 16, 16.1 Creatinine: 0.64, 0.50, 0.5 Treatment: Monitor Creatinine Kinase Normal Saline 1000 cc IV bolus once 06/06 then 75cc/hour IV start 06/06 Please clarify the type of rhabdomyolysis, if known: [ ] Non traumatic rhabdomyolysis due to (please specify cause) [ ] Rhabdomyolysis ruled out [ ] Other, please specify [ ] Unable to Determine ] Rhabdomyolysis ruled out MTDD
[2023-06-10] MEDS: IV FLUID CONTINUATION 1,000 ML IV ONE (11:43)
--- NOTE | 2023-06-10 12:00 | P.OP ---
Date of Procedure: 06/10/23 Preoperative Diagnosis: Dysphagia Postoperative Diagnosis: Antral ulceration Esophagitis Procedure(s) Performed: EGD Anesthesia: MAC Surgeon: Preston Banegas Pathology: other (Antrum, esophagus) Condition: stable Disposition: PACU Description of Procedure: The patient's placed on the endoscopy table in the lateral position. He received IV sedation. The gastro-/oropharynx passed in the esophagus into the stomach. Scope was placed through the pylorus. The first and second portion of the duodenumAppeared normal. Scope summer back the antrum and there was gastritis evidence of some small ulcers. There is no bleeding seen. This area was biopsied. Scope was unretroflexed and remainder the stomach appeared normal. The GE junction was at 40 cm. The distal esophagus appeared minimally inflamed. A biopsies performed. The proximal esophagus appeared normal. Scope withdrawn for patient.
[2023-06-10 12:13] LABS: Glucose,Whole Blood 140 mg/dL (70-110)
--- NOTE | 2023-06-10 13:35 | P.PN ---
Subjective Progress Note Date: 06/10/23 Patient seen and examined at 930 this morning CHIEF COMPLAINT: Dysphagia HISTORY OF PRESENT ILLNESS: Patient denies any abdominal pain. Did tolerate pured diet yesterday. Denies any nausea or vomiting. Vital stable PHYSICAL EXAM: VITAL SIGNS: Reviewed. GENERAL: Well-developed in no acute distress. ABDOMEN: Soft. Nondistended. Nontender. NEUROLOGIC: Alert and oriented. Cranial nerves II through XII grossly intact. ASSESSMENT: 1. Dysphagia 2. History of dermatomyositis PLAN: -Patient scheduled for EGD today with Dr. Banegas Physician Rn Otolaryngology note has been reviewed by physician. Signing provider agrees with the documented findings, assessment, and plan of care. Objective - Vital Signs Vital signs: Vital Signs Temp 97.8 F 06/10/23 06:58 Pulse 55 L 06/10/23 06:58 Resp 16 06/10/23 06:58 BP 136/59 06/10/23 06:58 Pulse Ox 96 06/10/23 06:58 FiO2 Intake & Output 06/09/23 06/10/23 06/10/23 18:59 06:59 18:59 Intake Total 1100 950 300 Balance 1100 950 300 Intake: IV 300 Intake, IV Titration 900 Amount Sodium Chloride 0.9% 1, 900 000 ml @ 75 mls/hr IV . [id number] [facility] Rx#:[id number] Oral 200 950 Other: Voiding Method Toilet # Voids 2 - Labs CBC & Chem 7: 06/10/23 04:44 06/10/23 04:44 Labs: Abnormal Lab Results - Last 24 Hours (Table) 06/09/23 06/09/23 06/09/23 Range/Units 03:55 16:27 20:03 RBC (4.40-5.60) X 10*6/uL Hgb (13.0-17.0) g/dL Hct (39.6-50.0) % Lymphocytes # (0.90-5.00) X 10*3/uL Eosinophils # (0.04-0.35) X 10*3/uL Creatinine (0.6-1.5) mg/dL BUN/Creatinine Ratio (12.00-20.00) Ratio Glucose (70-110) mg/dL POC Glucose (mg/dL) 132 H 166 H (70-110) mg/dL Creatine Kinase 382 H (35-257) U/L 06/10/23 06/10/23 06/10/23 Range/Units 04:44 04:44 05:37 RBC 3.71 L (4.40-5.60) X 10*6/uL Hgb 11.2 L (13.0-17.0) g/dL Hct 33.7 L (39.6-50.0) % Lymphocytes # 0.55 L (0.90-5.00) X 10*3/uL Eosinophils # 0 L (0.04-0.35) X 10*3/uL Creatinine 0.5 L (0.6-1.5) mg/dL BUN/Creatinine Ratio 31.80 H (12.00-20.00) Ratio Glucose 124 H (70-110) mg/dL POC Glucose (mg/dL) 119 H (70-110) mg/dL Creatine Kinase (35-257) U/L 06/10/23 Range/Units 12:11 RBC (4.40-5.60) X 10*6/uL Hgb (13.0-17.0) g/dL Hct (39.6-50.0) % Lymphocytes # (0.90-5.00) X 10*3/uL Eosinophils # (0.04-0.35) X 10*3/uL Creatinine (0.6-1.5) mg/dL BUN/Creatinine Ratio (12.00-20.00) Ratio Glucose (70-110) mg/dL POC Glucose (mg/dL) 140 H (70-110) mg/dL Creatine Kinase (35-257) U/L
[2023-06-10 16:56] LABS: Glucose,Whole Blood 136 mg/dL (70-110)
[2023-06-10 20:06] LABS: Glucose,Whole Blood 160 mg/dL (70-110)
--- NOTE | 2023-06-10 21:20 | PN ---
PROGRESS NOTE DATE OF SERVICE: 06/10/2023 SUBJECTIVE: This is a 72-year-old gentleman, who was admitted with severe dysphagia and recent diagnosis of dermatomyositis, underwent EGD today, which showed no acute abnormalities except for minimally inflamed distal esophagus. Modified barium is also pending at this time. No chest pain. No palpitation. OBJECTIVE: VITAL SIGNS: Pulse is 55, blood pressure 130/69, respirations 16. CHEST: Clear to auscultation. CARDIOVASCULAR: S1, S2. ABDOMEN: Soft. NERVOUS SYSTEM: No focal deficits. LABORATORY DATA: Reviewed. ASSESSMENT: 1. Dysphagia for evaluation, status post EGD. 2. Recent diagnosis of dermatomyositis. 3. Elevated AST. 4. Elevated creatine kinase, which is improving with no evidence of rhabdomyolysis. 5. Hypertension. 6. History of bladder cancer. 7. Multiple medical issues. RECOMMENDATIONS: Recommend to continue current management. Continue symptomatic treatment. Repeat labs. Otherwise, modified barium. Continue the IV steroids. Guarded prognosis. Further recommendations to follow. MMODL / IJN: [id number] /
[2023-06-11 05:55] LABS: Glucose,Whole Blood 138 mg/dL (70-110)
[2023-06-11 07:48] VITALS: BP 141/64; PULSE 56; RESP 17; TEMP 97.9
[2023-06-11 08:22] LABS: Basophils # (A) 0.01 X 10*3/uL (0.00-0.10); Basophils % (A) 0.1 %; Eosinophils # (A) 0.07 X 10*3/uL (0.04-0.35); Eosinophils % (A) 0.9 %; HCT 37.6 % (39.6-50.0); HGB 12.7 g/dL (13.0-17.0); Lymphocytes # (A) 0.61 X 10*3/uL (0.90-5.00); Lymphocytes % (A) 7.7 %; MCH 30.6 pg (27.0-32.0); MCHC 33.8 g/dL (32.0-37.0); MCV 90.6 FL (80.0-97.0); Mean Platelet Volume 11.3 FL (9.5-12.2); Monocytes # (A) 0.65 X 10*3/uL (0.20-1.00); Monocytes % (A) 8.2 %; NRBC Per 100 WBC 0 X 10*3/uL (0.00-0.01); Neutrophils # (A) 6.49 X 10*3/uL (1.80-7.70); Neutrophils % (A) 82.5 %; Platelet Count 240 X 10*3/uL (140-440); RBC 4.15 X 10*6/uL (4.40-5.60); RDW 13.7 % (11.5-14.5); WBC 7.88 X 10*3/uL (4.50-10.00)
[2023-06-11 08:45] LABS: Blood Urea Nitrogen 13.9 mg/dL (9.0-27.0); Calcium 9.3 mg/dL (8.7-10.3); Carbon Dioxide 24.7 mmol/L (21.6-31.8); Chloride 106 mmol/L (96-109); Glucose 118 mg/dL (70-110); Potassium 3.7 mmol/L (3.5-5.5); Sodium 142 mmol/L (135-145)
[2023-06-11 11:49] LABS: Glucose,Whole Blood 127 mg/dL (70-110)
--- NOTE | 2023-06-11 15:26 | P.DS ---
Providers Date of admission: 06/07/23 16:10 Expected date of discharge: 06/11/23 Attending physician: Louise Beauchamp Consults: 06/07/23 16:10 Consult Physician Routine Consulting Provider: Autumn Doran Consult Reason/Comments: Dermatomyositis Do you want consulting provider notified?: Yes 06/09/23 12:16 Consult Physician Urgent Consulting Provider: Preston Banegas Consult Reason/Comments: dysphagia Do you want consulting provider notified?: Yes Primary care physician: Benedicto Patel Hospital Course: Final diagnosis Dysphagia status post EGD showing mild gastritis with biopsies obtained and pending Recent diagnosis of dermatomyositis Elevated AST Elevated creatinine kinase which is improving with no evidence of rhabdo Hypertension history History of bladder cancer Former smoker GI prophylaxis DVT prophylaxis Full code Discharge disposition Patient is being discharged in a stable condition with guarded prognosis to home. Patient will follow-up with Regino Lassiter in the outpatient setting upon discharge. Patient is to continue with long prednisone taper and close outpatient follow-up with rheumatology as scheduled. Patient also instructed to follow-up with general surgery regarding biopsy results from EGD. Total time taken is greater than 35 minutes. Hospital course This is a 72-year-old male who was recently admitted with dysphagia along with dermatomyositis and being closely monitored. Patient has been having difficulty swallowing over the last few weeks and was evaluated by speech underwent modified barium swallow study showing a slow transit time and has been instructed to continue with speech therapy as well as pured diet. Patient was seen and evaluated by general surgery underwent EGD with biopsies obtained and pending showing gastritis and small ulcers with no bleeding noted and multiple biopsies obtained. The distal esophagus appeared minimally inflamed and biopsies of this was obtained as well. Patient is continued on IV steroids and will transition to a long steroid taper recommending outpatient follow-up with rheumatology. Dr. Doran was consulted although out of town at this time and will see the patient within the next 1 to 2 weeks. Patient will continue on Protonix on discharge. Patient has been cleared by consultations. Recommend aspiration precautions and head of the bed elevated 30 to 45 degrees at all times along with sitting up with all meals and small frequent meals. Continue current diet. Currently no reports of chest pain, shortness of breath, or palpitations. Patient is afebrile. No reports of nausea or vomiting and patient is tolerating diet. Patient will be discharged home today. Guarded prognosis and high risk for readmission given patient's significant comorbidities. Physical exam: Gen: This is a 72-year-old male who is awake, alert and oriented x 3, well- developed, well-nourished, elderly appearing HEENT: Head is atraumatic, normocephalic. Pupils equal, round. Sclerae is a nicteric. NECK: Supple. No JVD. No lymphadenopathy. No thyromegaly. LUNGS: Diminished breath sounds bilaterally otherwise clear to auscultation. No wheezes or rhonchi. No intercostal retractions. HEART: S1, S2 are muffled ABDOMEN: Soft. Bowel sounds are present. No masses. No tenderness. EXTREMITIES: No pedal edema. No calf tenderness. NEUROLOGICAL: Patient is awake, alert and oriented x3. Cranial nerves 2 through 12 are grossly intact. Please refer to medication reconciliation sheet for a list of medications. The impression and plan of care has been dictated by Marilu Alexandra, Nurse Practitioner as directed. Dr. Nito MD I have performed a history and examination and MDM of this patient, discussed the same with the dictator, and agree with the dictator's assessment and plan as written ,documented as a scribe. Based on total visit time, I have performed more than 50% of the visit. Patient Condition at Discharge: Stable Plan - Discharge Summary Discharge Rx Participant: No New Discharge Prescriptions: New Acetaminophen Tab [Tylenol] 650 mg PO Q6HR PRN tab PRN Reason: Mild Pain Or Fever > 100.5 Nystatin 100,000 Unit/ml Susp [Mycostatin Oral Susp] 500,000 unit PO QID 7 Days #140 ml predniSONE 60 mg PO DAILY #105 tab Continue atenoloL 25 mg PO DAILY amLODIPine [Norvasc] 10 mg PO DAILY Sertraline HCl [Zoloft] 25 mg PO DAILY Losartan Potassium 100 mg PO DAILY Mv-Min/Folic/K1/Lycopen/Lutein [Centrum Silver Men Tablet] 1 tab PO DAILY Aspirin EC [Ecotrin Low Dose] 81 mg PO DAILY Discontinued predniSONE 10 mg PO BID Discharge Medication List Losartan Potassium 100 mg PO DAILY 09/14/20 [History] Mv-Min/Folic/K1/Lycopen/Lutein [Centrum Silver Men Tablet] 1 tab PO DAILY 09/14/20 [History] Sertraline HCl [Zoloft] 25 mg PO DAILY 09/14/20 [History] amLODIPine [Norvasc] 10 mg PO DAILY 09/14/20 [History] atenoloL 25 mg PO DAILY 09/14/20 [History] Aspirin EC [Ecotrin Low Dose] 81 mg PO DAILY 06/07/23 [History] Acetaminophen Tab [Tylenol] 650 mg PO Q6HR PRN tab 06/11/23 [Rx] Nystatin 100,000 Unit/ml Susp [Mycostatin Oral Susp] 500,000 unit PO QID 7 Days #140 ml 06/11/23 [Rx] predniSONE 60 mg PO DAILY #105 tab 06/11/23 [Rx] Follow up Appointment(s)/Referral(s): Regino Lassiter NPC [Family Provider] - 1-2 days (Please call office to schedule appointment) Autumn Doran MD [STAFF PHYSICIAN] - 1 Week (Patien to make appointment) Preston Banegas MD [STAFF PHYSICIAN] - 1 Week (Patient to make appointment) Patient Instructions/Handouts: Complete Blenderized Diet (DC) Activity/Diet/Wound Care/Special Instructions: Activity limited until follow-up Follow-up with primary care provider on discharge Follow-up with rheumatology this week upcoming if possible Continue on steroid long taper until follow-up with rheumatology Follow-up with general surgery outpatient for biopsy results Continue with aspiration precautions and sitting up while eating and small frequent meals of pured diet Discharge Disposition: HOME SELF-CARE
--- NOTE | 2023-06-11 16:03 | P.PN ---
Subjective Progress Note Date: 06/11/23 CHIEF COMPLAINT: Dysphagia HISTORY OF PRESENT ILLNESS: Patient status post EGD revealing antral ulceration and esophagitis. Patient denies any abdominal pain. Denies any nausea or vomiting. He is tolerating the pured diet. PHYSICAL EXAM: VITAL SIGNS: Reviewed. GENERAL: Well-developed in no acute distress. ABDOMEN: Soft. Nondistended. Nontender. NEUROLOGIC: Alert and oriented. Cranial nerves II through XII grossly intact. ASSESSMENT: 1. Dysphagia. Delayed swallow on MBS 2. History of dermatomyositis 3. Status post EGD with antral ulceration and esophagitis PLAN: -Patient can be discharge from surgical standpoint -Continue PPI Physician High Density Press Laborer note has been reviewed by physician. Signing provider agrees with the documented findings, assessment, and plan of care. Objective - Vital Signs Vital signs: Vital Signs Temp 97.9 F 06/11/23 06:30 Pulse 56 L 06/11/23 06:30 Resp 17 06/11/23 06:30 BP 141/64 06/11/23 06:30 Pulse Ox 97 06/11/23 06:30 FiO2 Intake & Output 06/10/23 06/11/23 06/11/23 18:59 06:59 18:59 Intake Total 300 Balance 300 Intake: IV 300 Other: Voiding Method Toilet # Voids 2 3 - Labs CBC & Chem 7: 06/11/23 04:49 06/11/23 04:49 Labs: Abnormal Lab Results - Last 24 Hours (Table) 06/10/23 06/10/23 06/11/23 Range/Units 16:55 20:05 04:49 RBC 4.15 L (4.40-5.60) X 10*6/uL Hgb 12.7 L (13.0-17.0) g/dL Hct 37.6 L (39.6-50.0) % Immature Gran # 0.05 H (0.00-0.04) X 10*3/uL Lymphocytes # 0.61 L (0.90-5.00) X 10*3/uL Creatinine (0.6-1.5) mg/dL BUN/Creatinine Ratio (12.00-20.00) Ratio Glucose (70-110) mg/dL POC Glucose (mg/dL) 136 H 160 H (70-110) mg/dL 06/11/23 06/11/23 06/11/23 Range/Units 04:49 05:54 11:48 RBC (4.40-5.60) X 10*6/uL Hgb (13.0-17.0) g/dL Hct (39.6-50.0) % Immature Gran # (0.00-0.04) X 10*3/uL Lymphocytes # (0.90-5.00) X 10*3/uL Creatinine 0.5 L (0.6-1.5) mg/dL BUN/Creatinine Ratio 27.80 H (12.00-20.00) Ratio Glucose 118 H (70-110) mg/dL POC Glucose (mg/dL) 138 H 127 H (70-110) mg/dL
== END 2023-06-11 13:25 | disposition home or self-care (01) | DRG 546 ==
LOC: EC 13:28 → 4SSUR 16:10
PROVIDERS: ADMIT Hospitalist; ATTEND Hospitalist
PROC: 0DB78ZX Excision of Stomach, Pylorus, Via Natural or Artificial Opening Endoscopic, Diagnostic (ICD-10-PCS; principal; 2023-06-10 07:30)
DX: M33.13 Other dermatomyositis without myopathy (principal); B37.0 Candidal stomatitis; I10 Essential (primary) hypertension; M46.06 Spinal enthesopathy, lumbar region; K25.9 Gastric ulcer, unspecified as acute or chronic, without hemorrhage or perforation; R13.10 Dysphagia, unspecified; K20.90 Esophagitis, unspecified without bleeding; M19.90 Unspecified osteoarthritis, unspecified site; R74.01 Elevation of levels of liver transaminase levels; I77.819 Aortic ectasia, unspecified site; L30.9 Dermatitis, unspecified; Z11.52 Encounter for screening for COVID-19; Z87.891 Personal history of nicotine dependence; Z85.51 Personal history of malignant neoplasm of bladder; Z79.899 Other long term (current) drug therapy; Z79.82 Long term (current) use of aspirin; Z79.52 Long term (current) use of systemic steroids
CPT/HCPCS: 36415; 43239; 71046; 71260; 74230; 80048; 80053; 81003; 82550; 83036; 85025; 85652; 86140; 87636; 88305; 96374; 99285

== ENCOUNTER → 2024-03-02 | Outpatient (CLI) | payer MEDICARE ==
[2024-03-02 12:39] LABS: African American GFR (CKD) >90 (>60 ml/min/1.73 sqM); Blood Urea Nitrogen 11 mg/dL (9-20); Non-African American GFR(CKD) >90 (>60 ml/min/1.73 sqM)
--- NOTE | 2024-03-02 14:46 | CT ---
EXAMINATION TYPE: CT abdomen pelvis w con CT DLP: 421.5 mGycm, Automated exposure control for dose reduction was used. DATE OF EXAM: 03/02/2024 2:23 PM COMPARISON: CT chest 06/08/2023, CT abdomen and pelvis 09/14/2020 CLINICAL INDICATION:Male, 73 years old with history of C67.9; Bladder cancer follow up TECHNIQUE: Standard CT of the abdomen and pelvis following the administration of 100 cc of Isovue 3 00 IV contrast material and oral contrast. Coronal and sagittal reformats were performed. FINDINGS: LOWER CHEST: The visualized lung bases are clear. Mild prominence of the heart. ABDOMEN LIVER: Unremarkable GALLBLADDER AND BILE DUCTS: Unremarkable. PANCREAS: Unremarkable. SPLEEN: Unremarkable. ADRENAL GLANDS: Stable hypodense thickening of both adrenal glands likely related to hyperplasia.. KIDNEYS AND URETERS: No evidence of hydronephrosis or renal calculus. The kidneys enhance symmetrical ly. Stable left mid kidney 2.7 cm cyst. Additional tiny subcentimeter bilateral renal nonenhancing cy sts. Contrast is demonstrated within both collecting systems on the delayed phase. PELVIS BLADDER: Unremarkable. No focal bowel wall thickening. Evaluation is limited due to lack of contrast within the urinary bladder to assess or filling defects. REPRODUCTIVE: Coarse calcifications of the prostate gland are identified. Right-sided hydrocele. ABDOMEN & PELVIS STOMACH AND BOWEL: Stomach and duodenum are unremarkable. Enteric contrast reaches the transverse col on. No focal bowel wall thickening or surrounding inflammatory changes identified. No evidence of bow el obstruction. PERITONEUM: No evidence of pneumoperitoneum or free fluid. VASCULATURE: Moderate atherosclerotic calcifications are present throughout the abdominal aorta and i ts branches. No evidence of aortic aneurysm. Pelvic phleboliths. MUSCULOSKELETAL: No acute osseous abnormalities. Postsurgical changes with left-sided pedicular screw and palmer at L4-L5 with disc spacer. Additional L5 pedicular screw on the right. There is again fractu re of the L5 left degree screw. Chronic superior endplate compression deformity of the L1 vertebral b kolton with approximately 50% height loss. No retropulsion. Pneumorachis identified at the L3 and L4 lev els likely related to degenerative disc disease. LYMPH NODES: No evidence for lymphadenopathy. SOFT TISSUE/ABDOMINAL WALL: Unremarkable IMPRESSION: No CT evidence for residual/recurrent disease or metastasis within the abdomen/pelvis. [facility], , 03/02/2024 2:44 PM
== END | disposition home or self-care (01) ==
LOC: RADCTMAIN 11:55
PROVIDERS: ATTEND Urology
DX: C67.9 Malignant neoplasm of bladder, unspecified (principal)
CPT/HCPCS: 82565; 84520; 74177; 36415; Q9967

== ENCOUNTER 2024-05-04 17:40 | Inpatient (IN) | payer MEDICARE ==
--- NOTE | 2024-05-04 19:23 | ED ---
General Adult HPI - General Chief complaint: Arrhythmia/Palpitations Stated complaint: Abn EKG Time Seen by Provider: 05/04/24 17:50 Source: patient, RN notes reviewed, old records reviewed Mode of arrival: ambulatory Limitations: no limitations - History of Present Illness Initial comments: Is a 73-year-old male who presents to the emergency department from [facility]. Patient has a history of bladder cancer and states that over the last 4 days he has been feeling under the weather he states has been coughing quite a bit. Patient states he is a smoker. Patient denies any chest pain or palpitations. Patient states he feels a little short of breath on occasion. Patient denies any headache patient has numbness or weakness. Patient has abdominal pain patient has nausea vomiting diarrhea. Patient went to the be checked out at the hospital and they found his troponin to be elevated so they sent him to our facility patient arrived with no x-ray no COVID or influenza swab though he was coughing for the last 4 days and sent in by private vehicle - Related Data Home Medications Medication Instructions Recorded Confirmed Losartan Potassium 100 mg PO DAILY 09/14/20 06/07/23 Mv-Min/Folic/K1/Lycopen/Lutein 1 tab PO DAILY 09/14/20 06/07/23 [Centrum Silver Men Tablet] Sertraline HCl [Zoloft] 25 mg PO DAILY 09/14/20 06/07/23 amLODIPine [Norvasc] 10 mg PO DAILY 09/14/20 06/07/23 atenoloL 25 mg PO DAILY 09/14/20 06/07/23 Aspirin EC [Ecotrin Low Dose] 81 mg PO DAILY 06/07/23 06/07/23 Previous Rx's Medication Instructions Recorded Acetaminophen Tab [Tylenol] 650 mg PO Q6HR PRN tab 06/11/23 Nystatin 100,000 Unit/ml Susp 500,000 unit PO QID 7 Days #140 ml 06/11/23 [Mycostatin Oral Susp] Pantoprazole [Protonix] 40 mg PO DAILY #30 tab 06/11/23 predniSONE 60 mg PO DAILY #105 tab 06/11/23 Allergies Allergy/AdvReac Type Severity Reaction Status Date / Time sulfamethoxazole AdvReac Rash/Hives Verified 05/04/24 17:51 [From Bactrim] trimethoprim [From Bactrim] AdvReac Rash/Hives Verified 05/04/24 17:51 Review of Systems ROS Statement: Those systems with pertinent positive or pertinent negative responses have been documented in the HPI. ROS Other: All systems not noted in ROS Statement are negative. Past Medical History Past Medical History: Cancer, Hypertension Additional Past Medical History / Comment(s): bladder CA 2022 History of Any Multi-Drug Resistant Organisms: None Reported Past Surgical History: Appendectomy, Back Surgery Additional Past Surgical History / Comment(s): Bone spur between L4-L5 Past Anesthesia/Blood Transfusion Reactions: No Reported Reaction Past Psychological History: No Psychological Hx Reported Smoking Status: Former smoker Past Alcohol Use History: None Reported Past Drug Use History: None Reported General Exam - General Exam Comments Initial Comments: GENERAL: Patient is well-developed and well-nourished. Patient is nontoxic and well-hydr ated and is in mild distress. ENT: Neck is soft and supple. No significant lymphadenopathy is noted. Oropharynx is clear. Moist mucous membranes. Neck has full range of motion without eliciting any pain. EYES: The sclera were anicteric and conjunctiva were pink and moist. Extraocular movements were intact and pupils were equal round and reactive to light. Eyelids were unremarkable. PULMONARY: Unlabored respirations. Good breath sounds bilaterally. No audible rales rhonchi or wheezing was noted. CARDIOVASCULAR: There is a regular rate and rhythm without any murmurs gallops or rubs. ABDOMEN: Soft and nontender with normal bowel sounds. SKIN: Skin is clear with no lesions or rashes and otherwise unremarkable. NEUROLOGIC: Patient is alert and oriented x3. Cranial nerves II through XII are grossly intact. Motor and sensory are also intact. Normal speech, volume and content. Symmetrical smile. MUSCULOSKELETAL: Normal extremities with adequate strength and full range of motion. No lower extremity swelling or edema. No calf tenderness. LYMPHATICS: No significant lymphadenopathy is noted PSYCHIATRIC: Normal psychiatric evaluation. Limitations: no limitations Course Vital Signs 05/04/24 05/04/24 05/04/24 17:49 19:59 22:17 Temperature 97.3 F L Pulse Rate 73 59 L 68 Respiratory 18 18 17 Rate Blood Pressure 149/84 177/74 161/80 O2 Sat by Pulse 99 98 95 Oximetry 05/05/24 05/05/24 05/05/24 00:27 04:49 08:35 Temperature 98.2 F 98.6 F Pulse Rate 67 73 78 Respiratory 18 18 18 Rate Blood Pressure 142/78 167/90 O2 Sat by Pulse 96 97 Oximetry Medical Decision Making - Medical Decision Making EKG is interpreted by myself. EKG shows A-fib with rapid ventricular response at 100 beats a minute QRS is 86 QT interval 360 QTc is 417. Patient's got some ST segment depression in V4 through V6. No ST segment elevation Was pt. sent in by a medical professional or institution (JOSE Mclaughlin, HIRE CAR DRIVER, urgent care, hospital, or long-term...) When possible be specific @ -No Did you speak to anyone other than the patient for history (EMS, parent, family, police, friend...)? What history was obtained from this source @ -No Did you review nursing and triage notes (agree or disagree)? Why? @ -I reviewed and agree with nursing and triage notes Were old charts reviewed (outside hosp., previous admission, EMS record, old EKG, old radiological studies, urgent care reports/EKG's, long-term records)? Report findings @ -No old charts were reviewed Differential Diagnosis? @ -STEMI, NSTEMI, unstable angina, COVID, influenza, RSV, pneumonia, this is not an all-inclusive list EKG interpreted by me (3pts min.). @ -As above X-rays interpreted by me (1pt min.). @ -Chest x-ray shows no acute normality CT interpreted by me (1pt min.). @ -None done U/S interpreted by me (1pt. min.). @ -None done What testing was considered but not performed or refused? (CT, X-rays, U/S, labs)? Why? @ -None What meds were considered but not given or refused? Why? @ -None Did you discuss the management of the patient with other professionals (professionals i.e. JOSE Mclaughlin, HIRE CAR DRIVER, lab, RT, psych nurse, family welfare social work professor, install technician, teacher, national insurance officer, nurse case manager)? Give summary @ -Spoke with sound physicians agreed to admit the patient admit the patient wrote admitting orders I spoke with Dr. Edmonds he agreed to see the patient tomorrow and stated the patient should go on heparin and nitrates and aspirin. Was smoking cessation discussed for >3mins.? @ -No Was critical care preformed (if so, how long)? @ -35 minutes Were there social determinants of health that impacted care today? How? (Homelessness, low income, unemployed, alcoholism, drug addiction, transportation, low edu. Level, literacy, decrease access to med. care, assisted, rehab)? @ -No Was there de-escalation of care discussed even if they declined (Discuss DNR or withdrawal of care, Hospice)? DNR status @ -No What co-morbidities impacted this encounter? (DM, HTN, Smoking, COPD, CAD, Cancer, CVA, ARF, Chemo, Hep., AIDS, mental health diagnosis, sleep apnea, morbid obesity)? @ -None Was patient admitted / discharged? Hospital course, mention meds given and route, prescriptions, significant lab abnormalities, going to OR and other [facility] info. @ -Patient's troponin at [place] was elevated we did a second troponin here was even more elevated. I went back in and reevaluated the patient patient stated he was not having any chest pain. Patient was also COVID-positive. Patient was started on aspirin nitro paste and heparin. Patient will be admitted to [facility] with a consult to cardiology Undiagnosed new problem with uncertain prognosis? @ -No Drug Therapy requiring intensive monitoring for toxicity (Heparin, Nitro, Insulin, Cardizem)? @ -No Were any procedures done? @ -No Diagnosis/symptom? @ -NSTEMI Acute, or Chronic, or Acute on Chronic? @ -Acute Uncomplicated (without systemic symptoms) or Complicated (systemic symptoms)? @ -Complicated Side effects of treatment? @ -No Exacerbation, Progression, or Severe Exacerbation? @ -No Poses a threat to life or bodily function? How? (Chest pain, USA, IA, pneumonia, PE, COPD, DKA, ARF, appy, cholecystitis, CVA, Diverticulitis, Homicidal, Suicidal, threat to staff... and all critical care pts) @ -Yes this can lead to an IA and cardiac dysfunction and endorgan dysfunction Diagnosis/symptom? @ -COVID Acute, or Chronic, or Acute on Chronic? @ -Acute Uncomplicated (without systemic symptoms) or Complicated (systemic symptoms)? @ -Complicated Side effects of treatment? @ -None Exacerbation, Progression, or Severe Exacerbation] @ -No Poses a threat to life or bodily function? @ -No - Lab Data Result diagrams: 05/05/24 08:59 Lab Results 05/04/24 05/04/24 Range/Units 19:58 19:58 Troponin I 6.710 H* (0.000-0.034) ng/mL Influenza Type A (PCR) Not Detected (Not Detectd) Influenza Type B (PCR) Not Detected (Not Detectd) RSV (PCR) Not Detected (Not Detectd) SARS-CoV-2 (PCR) Detected A (Not Detectd) Disposition Clinical Impression: NSTEMI (non-ST elevated myocardial infarction), COVID, New onset atrial fibrillation Disposition: ADMITTED IP TO THIS HOSP Time of Disposition: 21:32
--- NOTE | 2024-05-04 20:38 | XR ---
EXAMINATION TYPE: XR chest 2V DATE OF EXAM: 05/04/2024 8:18 PM COMPARISON: Chest radiographs from 06/07/2023 CLINICAL INDICATION: Male, 73 years old with history of Difficulty breathing ; [facility] TECHNIQUE: XR chest 2V Frontal and lateral views of the chest. FINDINGS: Lungs/Pleura: Similar right perihilar opacitiesThere is no evidence of pleural effusion, focal consol idation, or pneumothorax. Pulmonary vascularity: Unremarkable. Heart/mediastinum: Cardiomediastinal silhouette is unremarkable. Musculoskeletal: No acute osseous pathology. Other findings: None IMPRESSION: No acute cardiopulmonary disease/process. [facility], , 05/04/2024 8:36 PM
[2024-05-04 20:52] LABS: Influenza A Not Detected (Not Detectd); Influenza B Not Detected (Not Detectd); RSV Not Detected (Not Detectd)
[2024-05-04] MEDS ORDERED: NITROGLYCERIN SL TABS 0.4 MG TAB SUBLINGUAL PRN (21:32)
[2024-05-04] MEDS: HEPARIN SOD,PORK IN 0.45% NACL 25,000 UNIT in 0.45% NACL 1 250ML.BAG IV SCH (22:12)
[2024-05-04] MEDS: HEPARIN SODIUM 1,000 UN/ML (10ML VL) IV ONE (22:15)
[2024-05-05] MEDS: NITROGLYCERIN OINT 1 INCH/GM PACKET TOPICAL SCH (00:30)
--- NOTE | 2024-05-05 06:50 | P.HPIM ---
History of Present Illness H&P Date: 05/04/24 Patient is a 73-year-old male with a past medical history significant for bladder cancer 18mos ago, dermatamyositis, and hypertension presenting as a transfer from [place]. He states that he had initially gone to [place] because his blood pressure cuff at home indicated that he was having an irregular heartbeat. He states that beginning on Friday he had not been feeling well, was fatigued, and had chills, myalgias are arthralgias, dyspnea, cough productive of yellow sputum. He denies chest pain, abdominal pain, nausea/vomiting, diarrhea. At [place] he was found to have elevated troponin and subsequently transferred him here. Initial vitals: BP 149/84, OH 73 bpm, RR 18, 97.3 F, 99% on room air Initial labs: Troponin x 3 6.71, 5.73, 5.63, COVID-positive Initial EKG: A-fib with ventricular rate 100 bpm, QTc 417 ms, left ventricular hypertrophy, no ST segment changes Initial chest x-ray: No acute cardiopulmonary disease/process ED documentation reviewed. Started on heparin gtt. 12 units/kg/h Review of Systems Pertinent positives and negatives as discussed in HPI, a complete review of systems was performed and all other systems are negative. Past Medical History Past Medical History: Cancer, Hypertension Additional Past Medical History / Comment(s): bladder CA 2022, dermatomyositis History of Any Multi-Drug Resistant Organisms: None Reported Past Surgical History: Appendectomy, Back Surgery Additional Past Surgical History / Comment(s): Bone spur between L4-L5 Past Anesthesia/Blood Transfusion Reactions: No Reported Reaction Past Psychological History: No Psychological Hx Reported Smoking Status: Light tobacco smoker (1-2 cigarettes per day) Past Alcohol Use History: None Reported Past Drug Use History: None Reported Medications and Allergies Home Medications Medication Instructions Recorded Confirmed Type Losartan Potassium 100 mg PO DAILY 09/14/20 06/07/23 History Mv-Min/Folic/K1/Lycopen/Lutein 1 tab PO DAILY 09/14/20 06/07/23 History [Centrum Silver Men Tablet] Sertraline HCl [Zoloft] 25 mg PO DAILY 09/14/20 06/07/23 History amLODIPine [Norvasc] 10 mg PO DAILY 09/14/20 06/07/23 History atenoloL 25 mg PO DAILY 09/14/20 06/07/23 History Aspirin EC [Ecotrin Low Dose] 81 mg PO DAILY 06/07/23 06/07/23 History Acetaminophen Tab [Tylenol] 650 mg PO Q6HR PRN tab 06/11/23 Rx Nystatin 100,000 Unit/ml Susp 500,000 unit PO QID 7 Days #140 ml 06/11/23 Rx [Mycostatin Oral Susp] Pantoprazole [Protonix] 40 mg PO DAILY #30 tab 06/11/23 Rx predniSONE 60 mg PO DAILY #105 tab 06/11/23 Rx Allergies Allergy/AdvReac Type Severity Reaction Status Date / Time sulfamethoxazole AdvReac Rash/Hives Verified 05/04/24 17:51 [From Bactrim] trimethoprim [From Bactrim] AdvReac Rash/Hives Verified 05/04/24 17:51 Physical Exam Vitals: Vital Signs Temp Pulse Resp BP Pulse Ox 05/04/24 19:59 59 L 18 177/74 98 05/04/24 17:49 97.3 F L 73 18 149/84 99 Intake and Output 05/04/24 05/04/24 05/04/24 06:59 14:59 22:59 Other: Weight 63.503 kg Vital signs reviewed General: Nontoxic, no distress, appears stated age, well-appearing Derm: Warm, dry, intact, no cyanosis Head: Atraumatic, normocephalic, symmetric Eyes: EOMI, anicteric sclera, PERRL Ears: Normal appearing, no external lesions, hearing intact Nose: Normal appearing, no external lesions Mouth: No lip lesion, mucus membranes moist, no tonsilar hypertrophy or exudate Neck: Supple, without lesions, trachea midline Cardiovascular: S1-S2 regular, no murmur, no pedal edema Lungs: CTA bilateral, no wheezes, no rhonchi, no rales, no accessory muscle use Abdominal: Soft, non-tender to palpation, bowel sounds present Extremities: Muscle strength 4/5 in all extremities, radial pulses 2+ bilateral, posterior tibial pulses 2+ bilateral, varicose veins noted on the right lower extremity Neuro: Alert, oriented x 4, gross neurological examination did not reveal any focal deficits. Cranial nerves II to XII grossly intact. Psych: Appropriate affect and mood Results Labs: Abnormal Lab Results - Last 24 Hours (Table) 05/04/24 05/04/24 Range/Units 19:58 19:58 Troponin I 6.710 H* (0.000-0.034) ng/mL SARS-CoV-2 (PCR) Detected A (Not Detectd) Thrombosis Risk Factor Assmnt - DVT/VTE Prophylaxis DVT/VTE Prophylaxis: Pharmacologic Prophylaxis ordered - Choose All That Apply Each Factor Represents 1 point: Varicose veins Each Risk Factor Represents 2 Points: Age 61-74 years Thrombosis Risk Factor Assessment Total Risk Factor Score: 3 Thrombosis Risk Factor Assessment Level: Moderate Risk Assessment and Plan Assessment: Patient is a 73-year-old male with past medical history significant for bladder cancer and hypertension admitted for afib with RVR Plan: Active # Afib RVR #. Hypertension elevated trops , which could be secondary to acute COVID , rule out underlying cardiac disease Initial vitals: BP 149/84, OH 73 bpm, RR 18, 97.3 F, 99% on room air Troponin x 3 6.71, 5.73, 5.63 D-dimer 0.55 Initial EKG: A-fib with ventricular rate 100 bpm, QTc 417 ms, left ventricular hypertrophy, no ST segment changes Continue with heparin GTT 12 units/kg/h per cardiology order Monitor vital signs Monitor CBC Monitor CMP Continue telemetry monitoring Obtain echo Obtain lipid panel Obtain HbA1c level Continue aspirin 81 mg p.o. daily Continue with home cardiac medications once confirmed Continue with Lipitor 80 mg p.o. daily Cardiology consulted #. COVID-19 positive patient is not requiring any oxygen at this time continue to monitor DVT prophylaxis: Heparin GTT GI prophylaxis: protonix 40 mg po daily The patient is admitted with an anticipated less than 2 midnight stay for evaluation of elevated trop s CODE STATUS: Full code Anticipated discharge place: Pending clinical course I have seen and evaluated the patient today. I Discussed the case with the resident and agree with the resident's findings I edited the assessment and plan as necessary as documented in the resident's note.
[2024-05-05] MEDS ORDERED: PANTOPRAZOLE 40 MG TABLET PO SCH ×2 (07:30)
[2024-05-05] MEDS: ASPIRIN 81 MG PO SCH (08:41)
[2024-05-05] MEDS: LOSARTAN 50 MG TAB PO SCH (08:42)
[2024-05-05] MEDS: amLODIPine 10 MG TAB PO SCH (08:42)
[2024-05-05] MEDS: METOPROLOL TARTRATE 25 MG TAB PO SCH (08:42)
[2024-05-05] MEDS: ATORVASTATIN 80 MG TAB PO SCH (08:43)
[2024-05-05 08:44] LABS: LDL Cholesterol,Calculated 105.1 mg/dL (0.0-131.0)
[2024-05-05] MEDS ORDERED: ASPIRIN 325 MG TAB PO SCH (09:00)
[2024-05-05] MEDS ORDERED: atenoloL 25 MG TAB PO SCH ×2 (09:00)
[2024-05-05 09:17] LABS: Basophils % (A) 0 %; Eosinophils # (A) 0.1 k/uL (0-0.7); Eosinophils % (A) 1 %; HCT 38.7 % (39.0-53.0); HGB 13.2 gm/dL (13.0-17.5); Lymphocytes # (A) 1.2 k/uL (1.0-4.8); Lymphocytes % (A) 16 %; MCHC 34.2 g/dL (31.0-37.0); MCV 93.4 fL (80.0-100.0); Mean Platelet Volume 7.6; Monocytes # (A) 0.7 k/uL (0-1.0); Monocytes % (A) 9 %; Neutrophils # (A) 5.2 k/uL (1.3-7.7); Neutrophils % (A) 71 %; Platelet Count 270 k/uL (150-450); RBC 4.14 m/uL (4.30-5.90); RDW 15.4 % (11.5-15.5); WBC 7.3 k/uL (3.8-10.6)
[2024-05-05 09:38] LABS: African American GFR (CKD) >90 (>60 ml/min/1.73 sqM); Anion Gap 6 mmol/L; Blood Urea Nitrogen 12 mg/dL (9-20); Calcium 8.7 mg/dL (8.4-10.2); Carbon Dioxide 27 mmol/L (22-30); Chloride 106 mmol/L (98-107); Glucose 104 mg/dL (74-99); Non-African American GFR(CKD) >90 (>60 ml/min/1.73 sqM); Potassium 3.8 mmol/L (3.5-5.1); Sodium 139 mmol/L (137-145)
[2024-05-05] MEDS ORDERED: NITROGLYCERIN SL TABS 0.4 MG TAB SUBLINGUAL PRN (10:31)
[2024-05-05] MEDS ORDERED: ALPRAZolam 0.5 MG TAB PO PRN (10:31)
[2024-05-05] MEDS ORDERED: ALPRAZolam 0.25 MG TAB PO PRN (10:31)
--- NOTE | 2024-05-05 10:34 | P.CRDCN ---
History of Present Illness History of present illness: HISTORY OF PRESENT ILLNESS: This is a 73-year-old male with a past medical history significant for hypertension and bladder cancer. Patient used to follow in the office with Dr. Childers but has not been seen since June 2018. We have been asked to see the patient in consultation for non-STEMI. Patient examined at the bedside in the emergency room. Patient states over the past few days when he has been checking his blood pressure at home it has been alerting him that his heart rate has been irregular. He states that he also felt his pulse and it was noted to be irregular. He initially presented to [facility] for further evaluation and was found to have elevated troponins and was transferred to [facility] for further evaluation. Additionally the patient was found to be positive for COVID-19. Patient does report feeling mildly short of breath for the past 4 to 5 days. He denies having any chest pain or pressure. He reports feeling congested and having some phlegm production in the morning. He currently denies any dizziness or lightheadedness. He states that he felt dizzy once recently but his blood pressure was also noted to be low at that time. The patient was found to be in atrial fibrillation on his initial EKG. Subsequent EKG reveals sinus mechanism. The patient denies any known history of atrial fibrillation. DIAGNOSTICS: - EKG reveals atrial fibrillation with heart rate of 100. Repeat EKG reveals sinus mechanism with T wave inversions in V4 and ST depression in V5V6. - Chest xray negative for acute process. - Laboratory data: Troponin 6.710. 5.730. 5.630. - Current home cardiac medication list not updated at the time of examination - No previous echocardiogram, stress test, or cardiac catheterization available in EMR for review REVIEW OF SYSTEMS: At the time of my exam: CONSTITUTIONAL: Denies fever or chills. HEENT: Denies blurred vision, vision changes, or eye pain. Denies hemoptysis CARDIOVASCULAR: Denies chest pain. Denies orthopnea. Denies PND. Denies palpitations RESPIRATORY: Denies shortness of breath. GASTROINTESTINAL: Denies abdominal pain. Denies nausea or vomiting. HEMATOLOGIC: Denies bleeding disorders. GENITOURINARY: Denies any blood in urine. SKIN: Denies pruitis. Denies rash. PHYSICAL EXAM: VITAL SIGNS: Reviewed. GENERAL: Well-developed in no acute distress. HEENT: Head is normocephalic. Pupils are equal, round. Sclerae anicteric. Mucous membranes of the mouth are moist. Neck supple. No JVD or thyromegaly. Bilateral carotid bruit. Right greater than left. LUNGS: Respirations even and unlabored. Lungs with bilateral crackles HEART: Regular rate and rhythm. S1 and S2 heard. Systolic murmur noted. ABDOMEN: Soft. Nondistended. Nontender. EXTREMITIES: Normal range of motion. No clubbing or cyanosis. Peripheral pulses intact. No lower extremity edema NEUROLOGIC: Awake and alert. Oriented x 3. ASSESSMENT: Acute COVID-19 Non-STEMI New onset paroxysmal atrial fibrillation, currently maintaining sinus mechanism History of hypertension History of bladder cancer with BCG treatment for 6 weeks History of dermatamyositis PLAN: Obtain 2D echo to assess cardiac structure and function Continue IV heparin. Patient will need to be transitioned to oral anticoagulation post cardiac catheterization. Continue with aspirin and atorvastatin Add metoprolol tartrate 25 mg twice a day Continue telemetry monitoring Check TSH Obtain carotid Doppler N.p.o. at midnight Patient to undergo cardiac catheterization tomorrow with Dr. Blas Further recommendations pending patient course Nurse practitioner note has been reviewed by physician. Signing provider agrees with the documented findings, assessment, and plan of care documented by CUSTOMER SUCCESS SPECIALIST as a scribe. Past Medical History Past Medical History: Cancer, Hypertension Additional Past Medical History / Comment(s): bladder CA 2022, dermatomyositis History of Any Multi-Drug Resistant Organisms: None Reported Past Surgical History: Appendectomy, Back Surgery Additional Past Surgical History / Comment(s): Bone spur between L4-L5 Past Anesthesia/Blood Transfusion Reactions: No Reported Reaction Past Psychological History: No Psychological Hx Reported Smoking Status: Light tobacco smoker (1-2 cigarettes per day) Past Alcohol Use History: None Reported Past Drug Use History: None Reported Medications and Allergies Home Medications Medication Instructions Recorded Confirmed Type Losartan Potassium 100 mg PO DAILY 09/14/20 05/05/24 History Sertraline HCl [Zoloft] 25 mg PO DAILY 09/14/20 05/05/24 History amLODIPine [Norvasc] 10 mg PO DAILY 09/14/20 05/05/24 History atenoloL 25 mg PO DAILY 09/14/20 05/05/24 History Aspirin EC [Ecotrin Low Dose] 81 mg PO DAILY 06/07/23 05/05/24 History Fluconazole [Diflucan] 100 mg PO DAILY PRN 05/05/24 05/05/24 History Ibuprofen [Motrin Ib] 200 mg PO Q8H PRN 05/05/24 05/05/24 History azaTHIOprine [Imuran] 50 mg PO TID 05/05/24 05/05/24 History predniSONE 5 mg PO DAILY 05/05/24 05/05/24 History Allergies Allergy/AdvReac Type Severity Reaction Status Date / Time sulfamethoxazole AdvReac Rash/Hives Verified 05/05/24 10:19 [From Bactrim] trimethoprim [From Bactrim] AdvReac Rash/Hives Verified 05/05/24 10:19 Physical Exam Vitals: Vital Signs Temp Pulse Resp BP Pulse Ox 05/05/24 04:49 98.6 F 73 18 167/90 97 05/05/24 00:27 98.2 F 67 18 142/78 96 05/04/24 22:17 68 17 161/80 95 05/04/24 19:59 59 L 18 177/74 98 05/04/24 17:49 97.3 F L 73 18 149/84 99 Intake and Output 05/04/24 05/05/24 05/05/24 22:59 06:59 14:59 Intake Total 65.405 Output Total 700 Balance -634.595 Intake: Intake, IV Titration 65.405 Amount Heparin Sod,Pork in 0.45% 65.405 NaCl 25,000 unit In 0.45 % NaCl 1 250ml.bag @ 12 UNITS/KG/HR 7.62 mls/hr IV .Q24H [facility] Rx#: [id number] Output: Urine 700 Other: Weight 63.503 kg Results 05/05/24 08:59 05/05/24 08:59 Cardiac Enzymes 05/04/24 05/04/24 05/05/24 Range/Units 19:58 23:50 02:41 Troponin I 6.710 H* 5.730 H* 5.630 H* (0.000-0.034) ng/mL Coagulation 05/05/24 05/05/24 Range/Units 02:41 06:06 APTT 31.2 H 31.7 H (22.0-30.0) sec Current Medications Generic Name Dose Route Start Last Admin Trade Name Freq PRN Reason Stop Dose Admin Amlodipine Besylate 10 mg 05/05/24 09:00 Amlodipine 10 Mg Tab PO DAILY [facility] Aspirin 81 mg 05/05/24 09:00 Aspirin 81 Mg PO DAILY [facility] Atorvastatin Calcium 80 mg 05/05/24 09:00 Atorvastatin 80 Mg Tab PO DAILY [facility] Heparin Sodium/Sodium Chloride 250 mls @ 7.62 mls/hr 05/04/24 21:30 05/05/24 06:47 25,000 unit/ Sodium Chloride IV 14 units/kg/hr .Q24H [facility] 8.89 mls/hr Titration Protocol 12 UNITS/KG/HR Losartan Potassium 100 mg 05/05/24 09:00 Losartan 50 Mg Tab PO DAILY [facility] Nitroglycerin 0.4 mg 05/04/24 21:32 Nitroglycerin Sl Tabs 0.4 Mg Tab SUBLINGUAL Q5M PRN Chest Pain Nitroglycerin 1 inch 05/05/24 00:00 05/05/24 06:49 Nitroglycerin Oint 1 Inch/Gm Packet TOPICAL 1 inch Q6HR [facility] Administration Intake and Output 05/04/24 05/05/24 05/05/24 22:59 06:59 14:59 Intake Total 65.405 Output Total 700 Balance -634.595 Intake: Intake, IV Titration 65.405 Amount Heparin Sod,Pork in 0.45% 65.405 NaCl 25,000 unit In 0.45 % NaCl 1 250ml.bag @ 12 UNITS/KG/HR 7.62 mls/hr IV .Q24H [facility] Rx#: [id number] Output: Urine 700 Other: Weight 63.503 kg
--- NOTE | 2024-05-05 10:55 | US ---
EXAMINATION TYPE: US carotid duplex BILAT DATE OF EXAM: 05/05/2024 COMPARISON: NONE CLINICAL INDICATION: Male, 73 years old with history of + bruit; Additional History: .... TECHNIQUE: Grayscale, color Doppler and spectral Doppler evaluation of the bilateral carotid systems and vertebral arteries. Indirect Doppler criteria was utilized. FINDINGS: EXAM MEASUREMENTS: RIGHT: Peak Systolic Velocity (PSV) cm/sec ----- Right CCA: 77.3 ----- Right ICA: 82.5 ----- Right ECA: 110.9 ICA/CCA ratio: 1.1 RIGHT: End Diastole cm/sec ----- Right CCA: 16.2 ----- Right ICA: 17.1 ----- Right ECA: 20.3 LEFT: Peak Systolic Velocity (PSV) cm/sec ----- Left CCA: 77.9 ----- Left ICA: 111.3 ----- Left ECA: 91.6 ICA/CCA ratio: 1.4 LEFT: End Diastole cm/sec ----- Left CCA: 18.6 ----- Left ICA: 34.4 ----- Left ECA: 16.8 VERTEBRALS (direction of flow): Right Vertebral: Antegrade Left Vertebral: Antegrade Rhythm: Normal VACUUM K[employer]TLE [employer]OOK NOTES: Limited exam due to vessel tortuosity Bilateral plaque seen within bulbs, No elevated velocities or significant stenosis seen bilaterally Color Doppler imaging shows patency with blood flow throughout the carotid artery. Spectral waveforms are within normal limits. IMPRESSION: Atherosclerotic plaque seen within the carotid bulb without ultrasound evidence for hemodynamically s ignificant stenosis. Criteria for Assigning % of Stenosis / Diameter reduction (Estimation based on the indirect measurements of the internal carotid artery velocities (ICA PSV). 1. Normal (no stenosis)=ICA PSV < 125 cm/s: ratio < 2.0: ICA EDV<40 cm/s. 2. Less than 50% stenosis=ICA PSV < 125 cm/s: ratio < 2.0: ICA EDV<40 cm/s. 3. 50 to 69% stenosis=ICA PSV of 125 to 230 cm/s: ration 2.0 ? 4.0: ICA EDV 40-100 cm/s. 4. Greater than 70% stenosis to near occlusion= ICA PSV > 230 cm/s: ratio > 4.0: ICA EDV > 100 cm/s. 5. Near occlusion= ICA PSV velocities may be low or undetectable: variable ratio and ICA EDV. 6. Total occlusion=unable to detect flow. [facility], , 05/05/2024 10:53 AM
[2024-05-05] MEDS ORDERED: DEXTROSE 50% SYRINGE 50 ML IVP PRN ×2 (15:51)
--- NOTE | 2024-05-05 15:56 | P.PN ---
Subjective Progress Note Date: 05/05/24 Hospital Course: Patient is a 73-year-old male with a past medical history significant for blad omayra cancer 18mos ago, dermatamyositis, and hypertension presenting as a transfer from [place]. He states that he had initially gone to [place] because his blood pressure cuff at home indicated that he was having an irregular heartbeat. He states that beginning on Friday he had not been feeling well, was fatigued, and had chills, myalgias are arthralgias, dyspnea, cough productive of yellow sputum. He denies chest pain, abdominal pain, nausea/vomiting, diarrhea. At [place] he was found to have elevated troponin and subsequently transferred him here.Initial labs: Troponin x 3 6.71, 5.73, 5.63, COVID- positive. Initial EKG: A-fib with ventricular rate 100 bpm, QTc 417 ms, left ve ntricular hypertrophy, no ST segment changes. Patient was admitted for further evaluation of elevated troponin, A-fib RVR. 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 Carotid duplex showed atherosclerotic plaque within the carotid bulb without ultrasound evidence for hemodynamically significant stenosis. A1c 6.5, started on Accu-Cheks, carb containing diet. He is a current smoker, counseled on cessation. Pertinent Imaging: Carotid duplex as above Subjective: Patient was seen and examined at bedside, he shared that he still smokes 3 to 4 cigarettes a day, he does not have any complaints at this time Pertinent positives and negatives as discussed above, a complete review of systems was performed and all other systems are negative. Vitals Signs Reviewed. General: [nontoxic], [no distress], [appears at stated age] Derm: [warm], [dry] Head: [atraumatic], [normocephalic], [symmetric], carotid bruit bilaterally Eyes: [EOMI], [no lid lag], [anicteric sclera] Mouth: [no lip lesion], [mucus membranes moist] Cardiovascular: [S1S2 reg], [systolic murmur] Lungs: [CTA bilateral], [no rhonchi, no rales] , [no accessory muscle use] Abdominal: [soft], [ nontender to palpation], [no guarding], [no appreciable organomegaly] Ext: [no gross muscle atrophy], [no edema], [no contractures] Neuro: [ CN II-XI grossly intact], [no focal neuro deficits] Psych: [Alert], [oriented], [appropriate affect] Data Reviewed Today: Pertinent Labs: WBC normal, hemoglobin normal, platelet count normal, sodium, potassium, chloride normal creatinine 0.58, LDL 105.1, TSH 1.73, hemoglobin A1c 6.5 Assessment and Plan: NSTEMI Paroxysmal A-fib with RVR Hypertension Dyslipidemia -Cardiology following, plan for PCI 05/06 -TTE pending -Continue aspirin 81, atorvastatin 80 mg Continue heparin drip Continue losartan 100 daily, metoprolol tartrate 25 twice daily, night triglyceride as needed Tobacco dependence: Counseled on smoking cessation Diabetes: A1c 6.5, start Accu-Cheks and SSI, carb content diet COVID infection, not hypoxic, continue to monitor [ DVT ppx: Heparin drip Code status: Full code Anticipated discharge place: TBD Anticipated discharge time: TBD Objective - Vital Signs Vital signs: Vital Signs Temp 98.6 F 05/05/24 04:49 Pulse 74 05/05/24 13:12 Resp 22 05/05/24 13:12 BP 137/70 05/05/24 13:12 Pulse Ox 96 05/05/24 13:12 FiO2 Intake & Output 05/04/24 05/05/24 05/05/24 18:59 06:59 18:59 Intake Total 65.405 Output Total 700 Balance -634.595 Weight 63.503 kg Intake: Intake, IV Titration 65.405 Amount Heparin Sod,Pork in 0.45% 65.405 NaCl 25,000 unit In 0.45 % NaCl 1 250ml.bag @ 12 UNITS/KG/HR 7.62 mls/hr IV .Q24H [facility] Rx#: [id number] Output: Urine 700 - Labs CBC & Chem 7: 05/05/24 08:59 05/05/24 08:59 Labs: Abnormal Lab Results - Last 24 Hours (Table) 05/04/24 05/04/24 05/04/24 Range/Units 19:58 19:58 23:50 RBC (4.30-5.90) m/uL Hct (39.0-53.0) % APTT (22.0-30.0) sec Creatinine (0.66-1.25) mg/dL Glucose (74-99) mg/dL Hemoglobin A1c (<=6.0) % Troponin I 6.710 H* 5.730 H* (0.000-0.034) ng/mL HDL Cholesterol (40.00-60.00) mg/dL SARS-CoV-2 (PCR) Detected A (Not Detectd) 05/05/24 05/05/24 05/05/24 Range/Units 02:41 02:41 02:41 RBC (4.30-5.90) m/uL Hct (39.0-53.0) % APTT 31.2 H (22.0-30.0) sec Creatinine (0.66-1.25) mg/dL Glucose (74-99) mg/dL Hemoglobin A1c (<=6.0) % Troponin I 5.630 H* (0.000-0.034) ng/mL HDL Cholesterol 35.50 L (40.00-60.00) mg/dL SARS-CoV-2 (PCR) (Not Detectd) 05/05/24 05/05/24 05/05/24 Range/Units 06:06 08:59 08:59 RBC 4.14 L (4.30-5.90) m/uL Hct 38.7 L (39.0-53.0) % APTT 31.7 H (22.0-30.0) sec Creatinine 0.58 L (0.66-1.25) mg/dL Glucose 104 H (74-99) mg/dL Hemoglobin A1c (<=6.0) % Troponin I (0.000-0.034) ng/mL HDL Cholesterol (40.00-60.00) mg/dL SARS-CoV-2 (PCR) (Not Detectd) 05/05/24 05/05/24 Range/Units 08:59 14:07 RBC (4.30-5.90) m/uL Hct (39.0-53.0) % APTT 31.9 H (22.0-30.0) sec Creatinine (0.66-1.25) mg/dL Glucose (74-99) mg/dL Hemoglobin A1c 6.5 H (<=6.0) % Troponin I (0.000-0.034) ng/mL HDL Cholesterol (40.00-60.00) mg/dL SARS-CoV-2 (PCR) (Not Detectd)
[2024-05-05] MEDS: HEPARIN SODIUM 1,000 UN/ML (10ML VL) IV PRN (15:57)
[2024-05-05 17:03] LABS: Glucose,Whole Blood 116 mg/dL (70-110)
[2024-05-05] MEDS: INSULIN ASPART (NovoLOG) 100 UNIT/ML VIAL SQ SCH (17:04)
--- NOTE | 2024-05-05 18:59 | P.CNPUL ---
History of Present Illness Consult date: 05/05/24 Reason for consult: dyspnea History of present illness: This is a 73-year-old female patient who is being seen in the emergency department because of some cough and congestion. She denies having any chest pain. She was complaining of some limited shortness of breath. No nausea vomiting or diarrhea or any form of abdominal pain. The patient was checked out at an outside hospital and the patient was found to have abnormal troponins and she was referred to us for further care. Noted the patient came into the emergency department and the patient tested positive for COVID-19. No previous history of COVID-19 infection. She has had previous vaccination for COVID-19 at the start of the pandemic. The patient is currently on room air oxygen. The patient had a chest x-ray in the emergency department that showed some vague right perihilar opacity and no previous x-rays for comparison. On a separate note, the patient is known to have history of dermatomyositis. The patient has been maintained on Imuran and prednisone on outpatient basis. His skin lesions have improved considerably and the patient has no significant neuromuscular weakness or muscle aches or pains. CPK is not elevated. Nevertheless, the troponin was elevated at 6.7 and subsequent dropped down to 5.7 and 5.6. No previous history of any coronary artery disease. EKG showed normal sinus mechanism. The patient was ruled in for acute non-ST segment elevation myocardial infarction. He did have a bout of atrial fibrillation and currently he is back in normal sinus rhythm. Echocardiogram was ordered and the patient is tentatively scheduled for a cardiac catheterization in a.m. He is currently on aspirin, metoprolol 25 mg twice daily and he was also started on statins. He is also on IV heparin. Review of Systems Constitutional: Reports fatigue, Reports weakness Eyes: denies as per HPI, denies blurred vision, denies bulging eye, denies decreased vision, denies diplopia, denies discharge, denies dry eye, denies irritation, denies itching, denies pain, denies photophobia, denies loss of peripheral vision, denies loss of vision, denies tunnel vision/blind spots Ears: deny: decreased hearing, ear discharge, earache, tinnitus Ears, nose, mouth and throat: Reports as per HPI Breasts: absent: as per HPI, gynecomastia Cardiovascular: Reports decreased exercise tolerance, Reports irregular heart beat Respiratory: Reports cough, Reports dyspnea Gastrointestinal: Reports as per HPI Genitourinary: Reports as per HPI Musculoskeletal: Reports as per HPI (History of dermatomyositis) Musculoskeletal: absent: ankle pain, ankle stiffness, ankle swelling, as per HP I, elbow pain, elbow stiffness, elbow swelling, foot pain, foot stiffness, foot swelling, hand pain, hand stiffness, hand swelling, hip pain, hip stiffness, hip swelling, knee pain, knee stiffness, knee swelling, shoulder pain, shoulder stiffness, shoulder swelling, wrist pain, wrist stiffness, wrist swelling Integumentary: Reports as per HPI (History of dermatomyositis, no active skin lesions) Neurological: Reports as per HPI Psychiatric: Reports as per HPI Endocrine: Reports as per HPI Hematologic/Lymphatic: Reports as per HPI Allergic/Immunologic: Reports as per HPI Past Medical History Past Medical History: Cancer, Hypertension Additional Past Medical History / Comment(s): bladder CA 2022 post resection and he has received BCG treatment. dermatomyositis on Imuran and Prednisone History of Any Multi-Drug Resistant Organisms: None Reported Past Surgical History: Appendectomy, Back Surgery Additional Past Surgical History / Comment(s): Bone spur between L4-L5 Past Anesthesia/Blood Transfusion Reactions: No Reported Reaction Past Psychological History: No Psychological Hx Reported Smoking Status: Light tobacco smoker (1-2 cigarettes per day) Past Alcohol Use History: None Reported Past Drug Use History: None Reported Medications and Allergies Home Medications Medication Instructions Recorded Confirmed Type Losartan Potassium 100 mg PO DAILY 09/14/20 05/05/24 History Sertraline HCl [Zoloft] 25 mg PO DAILY 09/14/20 05/05/24 History amLODIPine [Norvasc] 10 mg PO DAILY 09/14/20 05/05/24 History atenoloL 25 mg PO DAILY 09/14/20 05/05/24 History Aspirin EC [Ecotrin Low Dose] 81 mg PO DAILY 06/07/23 05/05/24 History Fluconazole [Diflucan] 100 mg PO DAILY PRN 05/05/24 05/05/24 History Ibuprofen [Motrin Ib] 200 mg PO Q8H PRN 05/05/24 05/05/24 History azaTHIOprine [Imuran] 50 mg PO TID 05/05/24 05/05/24 History predniSONE 5 mg PO DAILY 05/05/24 05/05/24 History Allergies Allergy/AdvReac Type Severity Reaction Status Date / Time sulfamethoxazole AdvReac Rash/Hives Verified 05/05/24 10:19 [From Bactrim] trimethoprim [From Bactrim] AdvReac Rash/Hives Verified 05/05/24 10:19 Physical Exam Vitals: Vital Signs Temp Pulse Resp BP Pulse Ox 05/05/24 08:35 78 18 05/05/24 04:49 98.6 F 73 18 167/90 97 05/05/24 00:27 98.2 F 67 18 142/78 96 05/04/24 22:17 68 17 161/80 95 05/04/24 19:59 59 L 18 177/74 98 05/04/24 17:49 97.3 F L 73 18 149/84 99 Intake and Output 05/04/24 05/05/24 05/05/24 22:59 06:59 14:59 Intake Total 65.405 Output Total 700 Balance -634.595 Intake: Intake, IV Titration 65.405 Amount Heparin Sod,Pork in 0.45% 65.405 NaCl 25,000 unit In 0.45 % NaCl 1 250ml.bag @ 12 UNITS/KG/HR 7.62 mls/hr IV .Q24H [facility] Rx#: [id number] Output: Urine 700 Other: Weight 63.503 kg The patient appeared well nourished and normally developed. Vital signs as documented. Head exam is unremarkable. No scleral icterus or corneal arcus noted. Neck is without jugular venous distension, thyromegaly, or carotid bruits. [place] tid upstrokes are brisk bilaterally. Lungs are clear to auscultation and percussion. Cardiac exam reveals the PMI to be normally sized and situated. Rhythm is regular. First and second heart sounds normal. No murmurs, rubs or gallops. Abdominal exam reveals normal bowel sounds, no masses, no organomegaly and no aortic enlargement. Extremities are nonedematous and both femoral and pedal pulses are normal. Examination of the skin revealed no evidence of significant rashes, suspicious appearing nevi or other concerning lesions. Neurologically, the patient is awake and alert and the patient does not have any focal neurological deficit. Cranial nerves are essentially intact. Results - Laboratory Findings CBC and BMP: 05/05/24 08:59 05/05/24 08:59 ABG WBC 7.3 k/uL (3.8-10.6) 05/05/24 08:59 RBC 4.14 m/uL (4.30-5.90) L 05/05/24 08:59 Hgb 13.2 gm/dL (13.0-17.5) 05/05/24 08:59 Hct 38.7 % (39.0-53.0) L 05/05/24 08:59 MCV 93.4 fL (80.0-100.0) 05/05/24 08:59 MCH 32.0 pg (25.0-35.0) 05/05/24 08:59 MCHC 34.2 g/dL (31.0-37.0) 05/05/24 08:59 RDW 15.4 % (11.5-15.5) 05/05/24 08:59 Plt Count 270 k/uL (150-450) 05/05/24 08:59 MPV 7.6 05/05/24 08:59 Neutrophils % 71 % 05/05/24 08:59 Lymphocytes % 16 % 05/05/24 08:59 Monocytes % 9 % 05/05/24 08:59 Eosinophils % 1 % 05/05/24 08:59 Basophils % 0 % 05/05/24 08:59 Neutrophils # 5.2 k/uL (1.3-7.7) 05/05/24 08:59 Lymphocytes # 1.2 k/uL (1.0-4.8) 05/05/24 08:59 Monocytes # 0.7 k/uL (0-1.0) 05/05/24 08:59 Eosinophils # 0.1 k/uL (0-0.7) 05/05/24 08:59 Basophils # 0.0 k/uL (0-0.2) 05/05/24 08:59 APTT 31.7 sec (22.0-30.0) H 05/05/24 06:06 D-Dimer 0.55 mg/L FEU (<0.60) 05/05/24 00:54 Sodium 139 mmol/L (137-145) 05/05/24 08:59 Potassium 3.8 mmol/L (3.5-5.1) 05/05/24 08:59 Chloride 106 mmol/L (98-107) 05/05/24 08:59 Carbon Dioxide 27 mmol/L (22-30) 05/05/24 08:59 Anion Gap 6 mmol/L 05/05/24 08:59 BUN 12 mg/dL (9-20) 05/05/24 08:59 Creatinine 0.58 mg/dL (0.66-1.25) L 05/05/24 08:59 Est GFR (CKD-EPI)AfAm >90 (>60 ml/min/1.73 sqM) 05/05/24 08:59 Est GFR (CKD-EPI)NonAf >90 (>60 ml/min/1.73 sqM) 05/05/24 08:59 Glucose 104 mg/dL (74-99) H 05/05/24 08:59 Calcium 8.7 mg/dL (8.4-10.2) 05/05/24 08:59 Troponin I 5.630 ng/mL (0.000-0.034) H* 05/05/24 02:41 Triglycerides 132.00 mg/dL (0.00-149.00) 05/05/24 02:41 Cholesterol 167.00 mg/dL (0.00-200.00) 05/05/24 02:41 LDL Cholesterol, Calc 105.1 mg/dL (0.0-131.0) 05/05/24 02:41 VLDL Cholesterol, Calc 26.40 mg/dL (5.00-40.00) 05/05/24 02:41 HDL Cholesterol 35.50 mg/dL (40.00-60.00) L 05/05/24 02:41 Cholesterol/HDL Ratio 4.70 Ratio 05/05/24 02:41 TSH 1.730 mIU/L (0.465-4.680) 05/05/24 08:59 Influenza Type A (PCR) Not Detected (Not Detectd) 05/04/24 19:58 Influenza Type B (PCR) Not Detected (Not Detectd) 05/04/24 19:58 RSV (PCR) Not Detected (Not Detectd) 05/04/24 19:58 SARS-CoV-2 (PCR) Detected (Not Detectd) A 05/04/24 19:58 PT/INR, D-dimer D-Dimer 0.55 mg/L FEU (<0.60) 05/05/24 00:54 Abnormal lab findings: Abnormal Labs 05/04/24 05/04/24 05/04/24 19:58 19:58 23:50 RBC Hct APTT Creatinine Glucose Troponin I 6.710 H* 5.730 H* HDL Cholesterol SARS-CoV-2 (PCR) Detected A 05/05/24 05/05/24 05/05/24 02:41 02:41 02:41 RBC Hct APTT 31.2 H Creatinine Glucose Troponin I 5.630 H* HDL Cholesterol 35.50 L SARS-CoV-2 (PCR) 05/05/24 05/05/24 05/05/24 06:06 08:59 08:59 RBC 4.14 L Hct 38.7 L APTT 31.7 H Creatinine 0.58 L Glucose 104 H Troponin I HDL Cholesterol SARS-CoV-2 (PCR) - Diagnostic Findings Chest x-ray: image reviewed Assessment and Plan Plan: Acute COVID-19 infection, limited cough and congestion. No hypoxemia. Chest x- ray shows awake right infrahilar infiltration that needs to be further characterized by CAT scan of the chest. Acute non-ST segment elevation myocardial infarction. EKG findings are nonspecific and a troponin was quite elevated at 6.7 at the time of admission and the troponins are essentially downtrending. Atrial fibrillation, new onset, currently back into normal sinus mechanism History of dermatomyositis maintained on a combination of Imuran and prednisone outpatient basis Hypertension History of bladder cancer postresection back in January 2023 and the patient received BCG treatment. Plan Patient is relatively asymptomatic regards to COVID-19 Will obtain a CAT scan of the chest at a later stage to further characterize the right infrahilar patchy abnormality. A CAT scan of the chest will be also needed to rule out any underlying interstitial lung disease in association with dermatomyositis Patient will have an echocardiogram Cardiac catheterization in a.m. Continue aspirin Continue IV heparin Continue metoprolol 25 mg p.o. twice a day Continue statins with Lipitor Cardiology on the case Carotid Dopplers have been ordered Will need to resume prednisone at a dose of 5 mg p.o. daily. Will keep the Imuran on hold for now. Will continue to follow Time with Patient: Greater than 30
[2024-05-05] MEDS: predniSONE 5 MG TAB PO SCH (21:58)
[2024-05-05] MEDS: azaTHIOprine 50 MG TAB PO SCH (21:59)
[2024-05-05 22:05] LABS: Glucose,Whole Blood 95 mg/dL (70-110)
[2024-05-05] MEDS: SODIUM CHLORIDE 0.9% 1,000 ML in EMPTY BAG 1 BAG IV SCH (23:56)
[2024-05-06] MEDS: ASPIRIN 325 MG TAB PO ONE (06:09)
[2024-05-06] MEDS: ATORVASTATIN 80 MG TAB PO ONE (06:09)
[2024-05-06] MEDS: SERTRALINE 25 MG TAB PO SCH (06:10)
--- NOTE | 2024-05-06 07:20 | CA ---
Transthoracic Echo Report Name: Bryce Hogan Age: 73 Gender: M : 1950 Exam Date: 05/05/2024 15:30 Exam Location: [facility] Ht (in): 67 Wt (lb): 140 Ordering Physician: Kelsey Bucio Attending/Referring Phys: [id number], Rupinder Cranberry Bog Supervisor Martina Kevin RDCS Procedure CPT: Indications: covid, nstemi, lv function Cardiac Hx: Technical Quality: Good Contrast 1: Total Dose (mL): Contrast 2: Total Dose (mL): MEASUREMENTS (Male / Female) Normal Values 2D ECHO LV Diastolic Diameter PLAX 4.4 cm 4.2 - 5.9 / 3.9 - 5.3 cm LV Systolic Diameter PLAX 3.4 cm IVS Diastolic Thickness 1.4 cm 0.6 - 1.0 / 0.6 - 0.9 cm LVPW Diastolic Thickness 1.3 cm 0.6 - 1.0 / 0.6 - 0.9 cm LV Relative Wall Thickness 0.6 RV Internal Dim ED PLAX 3.4 cm LA Systolic Diameter LX 3.4 cm 3.0 - 4.0 / 2.7 - 3.8 cm LV Diastolic Volume MOD 4C 100.2 cm??? LV Systolic Volume MOD 4C 52.8 cm??? LV Ejection Fraction MOD 4C 47.3 % LV Cardiac Index MOD 4C 1941.5 cm???/min???m??? LV Diastolic Length 4C 9.8 cm LV Systolic Length 4C 8.8 cm LV Diastolic Volume MOD 2C 113.4 cm??? LV Systolic Volume MOD 2C 52.1 cm??? LV Ejection Fraction MOD 2C 54.0 % LV Cardiac Index MOD 2C 2507.9 cm???/min???m??? LV Diastolic Length 2C 9.8 cm LV Systolic Length 2C 8.3 cm LA Volume 48.1 cm??? 18 - 58 / 22 - 52 cm??? LA Volume Index 27.7 cm???/m??? 16 - 28 cm???/m??? DOPPLER AV Peak Velocity 117.2 cm/s AV Peak Gradient 5.5 mmHg MV Area PHT 3.7 cm??? Mitral E Point Velocity 57.0 cm/s Mitral A Point Velocity 123.7 cm/s Mitral E to A Ratio 0.5 MV Deceleration Time 203.3 ms TR Peak Velocity 263.8 cm/s TR Peak Gradient 27.8 mmHg Right Ventricular Systolic Press 31.8 mmHg FINDINGS Left Ventricle Left ventricular ejection fraction is estimated at 40-45%. Moderately increased septal wall thickness. Left ventricular cavity size normal. Apical septum hypokinesis. Apical inferior hypokinesis. Smoke in apical part of LV Right Ventricle Mild right ventricular dilatation. Right ventricular systolic pressure within normal limits. Right Atrium Normal right atrial size. No right atrial thrombus or mass seen. Left Atrium Normal left atrial size. No left atrial thrombus or mass present. Mitral Valve Structurally normal mitral valve. Mild to moderate mitral regurgitation. Aortic Valve Trileaflet aortic valve. No aortic valve stenosis or regurgitation. Tricuspid Valve Structurally normal tricuspid valve. Mild tricuspid regurgitation. Pulmonic Valve Structurally normal pulmonic valve. No pulmonic regurgitation. Pericardium No pericardial effusion. Aorta Normal size aortic root and proximal ascending aorta. CONCLUSIONS Impaired LV function with EF between 40 to 45% 5 with mid ventricle and apical hypokinesia. Mild to moderate mitral regurgitation No pericardial effusion Previewed by: Dr. Rito Leung MD (Electronically Signed) Final Date: 06 May 2024 07:19
[2024-05-06 07:36] LABS: Basophils % (A) 0 %; Eosinophils % (A) 0 %; HCT 38.8 % (39.0-53.0); HGB 12.8 gm/dL (13.0-17.5); Lymphocytes # (A) 1.2 k/uL (1.0-4.8); Lymphocytes % (A) 16 %; MCH 31.5 pg (25.0-35.0); MCV 95.5 fL (80.0-100.0); Mean Platelet Volume 7.7; Monocytes # (A) 0.6 k/uL (0-1.0); Monocytes % (A) 8 %; Neutrophils # (A) 5.4 k/uL (1.3-7.7); Neutrophils % (A) 73 %; Platelet Count 295 k/uL (150-450); RBC 4.06 m/uL (4.30-5.90); RDW 15.1 % (11.5-15.5); WBC 7.3 k/uL (3.8-10.6)
[2024-05-06 07:40] LABS: African American GFR (CKD) >90 (>60 ml/min/1.73 sqM); Anion Gap 7 mmol/L; Blood Urea Nitrogen 18 mg/dL (9-20); Carbon Dioxide 24 mmol/L (22-30); Chloride 108 mmol/L (98-107); Glucose 118 mg/dL (74-99); Non-African American GFR(CKD) >90 (>60 ml/min/1.73 sqM); Potassium 3.9 mmol/L (3.5-5.1); Sodium 139 mmol/L (137-145)
[2024-05-06] MEDS: SODIUM CHLORIDE 0.9% 1,000 ML IV ONE (09:50)
[2024-05-06] MEDS: HEPARIN SODIUM,PORCINE 10,000 UNIT in SODIUM CHLORIDE 0.9% 1,000 ML IRRIGATION PRN (09:51)
[2024-05-06] MEDS: HEPARIN SODIUM,PORCINE (1 ML) 2,500 UNIT in SODIUM CHLORIDE 0.9% 250 ML IRRIGATION PRN (09:51)
[2024-05-06] MEDS: fentaNYL (PF) 50 MCG/ML 2 ML AMP IVP ONE (10:29)
[2024-05-06] MEDS: LIDOCAINE 1% INJ 10MG/ML (20 ML MDV) SQ ONE (10:33)
[2024-05-06] MEDS: VERAPAMIL SYRINGE (5 MG/10 ML) INTRAARTER ONE (10:35)
[2024-05-06] MEDS: MIDAZOLAM 2 MG/2 ML VIAL IVP ONE (10:42)
[2024-05-06] MEDS: TICAGRELOR 90 MG TAB PO ONE (10:47)
[2024-05-06] MEDS: IOPAMIDOL-370 100ML BTL INJ ONE ×2 (11:03→11:46)
[2024-05-06] MEDS: NITROGLYCERIN 1000MCG/10ML SYRINGE INTRACORON ONE (11:08)
[2024-05-06] MEDS ORDERED: ATROPINE SULFATE 0.1 MG/ML 10ML SYRINGE IV PRN (12:06)
[2024-05-06] MEDS ORDERED: ZOLPIDEM 5 MG TAB PO PRN (12:06)
[2024-05-06] MEDS ORDERED: NITROGLYCERIN SL TABS 0.4 MG TAB SUBLINGUAL PRN (12:06)
[2024-05-06] MEDS ORDERED: RX INFO: IV CONTRAST WAS GIVEN 1 EACH MISC MISCELLANE PRN (12:06)
[2024-05-06] MEDS ORDERED: MAG HYDROX/AL HYDROX/SIMETH 30 ML CUP PO PRN (12:06)
[2024-05-06 12:11] LABS: Glucose,Whole Blood 101 mg/dL (70-110)
--- NOTE | 2024-05-06 12:19 | P.CARDCATH ---
Date of Procedure: 05/06/24 Description of Procedure: Cardiac Catheterization: The patient is a 73-year-old male with a history of hypertension, dermatomyositis who presented with symptoms of dyspnea and chest discomfort. He had evidence of COVID infection and troponin elevation with EKG changes, T wave inversion laterally. He had atrial fibrillation on presentation but converted to sinus mechanism spontaneously. Recommendations were made regarding cardiac catheterization, the risks and the complications were discussed with the patient who is in full understanding and agreement. Procedure Description: Patient was brought to hospital laboratory technician in fasting semi-sedated state after receiving Fentanyl and Benadryl achieiving moderate conscious sedated state. Using Xylocaine Anesthesia and modified Seldinger technique, a 6-Tajik sheath was introduced in the right radial artery . Subsequently, selective coronary angiography was performed using a 5-Tajik 3.5 bend Zofia catheter. Multiple views of the coronary artery including hemiaxial views were obtained. PCI: After removing the catheter a 6 Tajik CLS 3.5 guiding catheters was introduced and the left main was cannulated. Attempt to advance a 0.014 BMW J-wire were unsuccessful, that wire was removed and a 0.014 whisper J-wire with the help of a super cross were able to cross the lesion. There was inability to advance the super cross, it was removed and subsequently a 1.0 x 15 mm sapphire balloon was advanced and multiple inflation at 12 ivette were done. After removing the balloon a 2.0 x 12 mm trek balloon was advanced and multiple inflation at 8 ivette were done. A 6 Tajik guide liner was introduced into the system. After removing the balloon a [email or web address] [place] eye IVUS catheter was introduced but could not cross the lesion completely, images were obtained and revealed heavily calcified segment. Subsequently a 2.5 x 12 mm NC trek balloon was advanced and multiple inflation at 10 ivette were done. Subsequently a 2.75 x 33 mm Xience rafal point stent was deployed at 16 ivette. Subsequently a 3.5 x 12 mm Xience rafal point stent was deployed proximal to the first 1 at 14 ivette. Repeat IVUS imaging was performed and a 3.0 x 20 mm NC trek balloon was advanced and inflation in the midsegment of the first stent were done at 12 ivette. After the last inflation and after appropriate weight the wire was removed and images were obtained and revealed stable successful stenting. Following that, catheter and sheath were removed. Hemostasis was obtained with deployment of vascular band . There was no immediate complication. Patient was returned to room in stable condition. Of note, the patient received a total of 10,000 units of intravenous heparin as well as intra-arterial verapamil. He received an oral loading dose of Brilinta, his ACT was monitored. He had chest discomfort and EKG changes that resolved at the end of the procedure. Findings: Fluoroscopy: Significant calcification in the LAD was noted. Left main: This is a large size vessel trifurcating to LAD, left circumflex and ramus intermedius. The left main has no obstructive disease. LAD: This is a large size vessel, heavily calcified in the midsegment with subtotal occlusion and slow flow distally the proximal segment has no evidence of high-grade stenosis Left circumflex: This vessel gives rise to a first obtuse marginal branch and after that is totally occluded with no significant antegrade flow RCA: This is a large size vessel, bifurcating distally to PDA and PLV. The mid right coronary artery has 20 to 30% plaque with no high-grade stenosis. There is collaterals from the right coronary artery to the obtuse marginal branch Ramus intermedius: This is a large size vessel that has no evidence of high- grade stenosis. Left Ventriculogram: Not performed Conclusion: 1. Subtotally occluded mid LAD 2. Chronically occluded mid left circumflex with collaterals from the right coronary system 3. Mild disease in the RCA 4. Calcified LAD 5. Successful stenting of the mid LAD with reduction stenosis from 99% to less than 5% with IVUS imaging and ESTEPHANIE-3 flow Recommendations: The patient will continue on aspirin and Brilinta for 1 year without any interruption in addition to aggressive coronary risks modifications, maintaining LDL below 70 mg/dL. Depending on his symptoms the decision will be made regarding the need to revascularize the left circumflex if he has any recurrent angina. The findings and the recommendations were discussed with the patient and the family and they were in full understanding and agreement. Duration of sedation is 78 minutes.
[2024-05-06] MEDS: SPIRONOLACTONE 25 MG TAB PO SCH (12:43)
--- NOTE | 2024-05-06 14:40 | P.PN ---
Subjective Progress Note Date: 05/06/24 Hospital Course: Patient is a 73-year-old male with a past medical history significant for blad omayra cancer 18mos ago, dermatamyositis, and hypertension presenting as a transfer from [facility]. He states that he had initially gone to [facility] because his blood pressure cuff at home indicated that he was having an irregular heartbeat. He states that beginning on Friday he had not been feeling well, was fatigued, and had chills, myalgias are arthralgias, dyspnea, cough productive of yellow sputum. He denies chest pain, abdominal pain, nausea/vomiting, diarrhea. At [facility] he was found to have elevated troponin and subsequently transferred him here.Initial labs: Troponin x 3 6.71, 5.73, 5.63, COVID- positive. Initial EKG: A-fib with ventricular rate 100 bpm, QTc 417 ms, left ve ntricular hypertrophy, no ST segment changes. Patient was admitted for further evaluation of elevated troponin, A-fib RVR. Cardiology consulted, recommended to continue IV heparin, obtain TTE, continue aspirin, statin, started on metoprolol tartrate 25 twice daily, carotid duplex ordered, patient to undergo Floor Coverings Installer on 05/06. Floor Coverings Installer showed subtotally occluded mid LAD, chronically occluded mid left circumflex with collaterals from the right coronary system, mild decrease in the RCA, calcified LAD, successful stenting of the mid LAD. Patient will continue aspirin and Brilinta for 1 year.Started on spironolactone 25 daily, metoprolol increased to 50 twice daily, Carotid duplex showed atherosclerotic plaque within the carotid bulb without ultrasound evidence for hemodynamically significant stenosis. A1c 6.5, started on Accu-Cheks, carb containing diet. He is a current smoker, counseled on cessation.TTE showed EF of 40 to 45%, mid ventricle and apical hypokinesia Subjective: Patient was seen and examined at bedside, denies chest pain, shortness of breath Pertinent positives and negatives as discussed above, a complete review of systems was performed and all other systems are negative. Vitals Signs Reviewed. General: [nontoxic], [no distress], [appears at stated age] Derm: [warm], [dry] Head: [atraumatic], [normocephalic], [symmetric], carotid bruit bilaterally Eyes: [EOMI], [no lid lag], [anicteric sclera] Mouth: [no lip lesion], [mucus membranes moist] Cardiovascular: [S1S2 reg], [systolic murmur] Lungs: [CTA bilateral], [no rhonchi, no rales] , [no accessory muscle use] Abdominal: [soft], [ nontender to palpation], [no guarding], [no appreciable organomegaly] Ext: [no gross muscle atrophy], [no edema], [no contractures] Neuro: [ CN II-XI grossly intact], [no focal neuro deficits] Psych: [Alert], [oriented], [appropriate affect] Data Reviewed Today: No leukocytosis, hemoglobin 12.8, platelet count normal, sodium and potassium normal, creatinine 0.65, glucose is well-controlled. Magnesium 2.0 Assessment and Plan: NSTEMI CAD status post LAD stent 05/06/2024 HFrEF EF 40 to 45% Paroxysmal A-fib with RVR Hypertension Dyslipidemia -Cardiology following, -T TTE showed EF of 40 to 45%, mid ventricle and apical hypokinesia -Continue aspirin 81, Brilinta 90 twice daily, atorvastatin 80 mg -Started on spironolactone 25 daily, metoprolol increased to 50 twice daily, Tobacco dependence: Counseled on smoking cessation Diabetes: A1c 6.5, start Accu-Cheks and SSI, carb content diet COVID infection, not hypoxic, continue to monitor DVT ppx: Heparin drip Code status: Full code Anticipated discharge place: TBD Anticipated discharge time: TBD Objective - Vital Signs Vital signs: Vital Signs Temp 98.0 F 05/06/24 08:47 Pulse 85 05/06/24 14:19 Resp 16 05/06/24 14:19 BP 139/74 05/06/24 14:19 Pulse Ox 96 05/06/24 13:21 FiO2 Intake & Output 05/05/24 05/06/24 05/06/24 18:59 06:59 18:59 Intake Total 82.529 600.113 212.575 Balance 82.529 600.113 212.575 Weight 63 kg Intake: IV 102 Intake, IV Titration 82.529 60.113 110.575 Amount Heparin Sod,Pork in 0.45% 82.529 60.113 110.575 NaCl 25,000 unit In 0.45 % NaCl 1 250ml.bag @ 12 UNITS/KG/HR 7.62 mls/hr IV .Q24H [facility] Rx#: [id number] Oral 540 Other: Voiding Method Toilet Toilet Urinal Urinal # Voids 2 2 - Labs CBC & Chem 7: 05/06/24 06:35 05/06/24 06:35 Labs: Abnormal Lab Results - Last 24 Hours (Table) 05/05/24 05/05/24 05/05/24 Range/Units 08:59 14:07 17:01 RBC (4.30-5.90) m/uL Hgb (13.0-17.5) gm/dL Hct (39.0-53.0) % APTT 31.9 H (22.0-30.0) sec Chloride (98-107) mmol/L Creatinine (0.66-1.25) mg/dL Glucose (74-99) mg/dL POC Glucose (mg/dL) 116 H (70-110) mg/dL Hemoglobin A1c 6.5 H (<=6.0) % 05/05/24 05/06/24 05/06/24 Range/Units 22:16 06:35 06:35 RBC 4.06 L (4.30-5.90) m/uL Hgb 12.8 L (13.0-17.5) gm/dL Hct 38.8 L (39.0-53.0) % APTT 40.1 H (22.0-30.0) sec Chloride 108 H (98-107) mmol/L Creatinine 0.65 L (0.66-1.25) mg/dL Glucose 118 H (74-99) mg/dL POC Glucose (mg/dL) (70-110) mg/dL Hemoglobin A1c (<=6.0) % 05/06/24 Range/Units 06:35 RBC (4.30-5.90) m/uL Hgb (13.0-17.5) gm/dL Hct (39.0-53.0) % APTT 32.2 H (22.0-30.0) sec Chloride (98-107) mmol/L Creatinine (0.66-1.25) mg/dL Glucose (74-99) mg/dL POC Glucose (mg/dL) (70-110) mg/dL Hemoglobin A1c (<=6.0) %
[2024-05-06] MEDS: SODIUM CHLORIDE 0.9% 1,000 ML in EMPTY BAG 1 BAG IV SCH (15:46)
[2024-05-06 16:12] LABS: Glucose,Whole Blood 99 mg/dL (70-110)
--- NOTE | 2024-05-06 19:01 | P.PN ---
Subjective Progress Note Date: 05/06/24 This is a 73-year-old female patient who is being seen in the emergency department because of some cough and congestion. She denies having any chest pain. She was complaining of some limited shortness of breath. No nausea vomiting or diarrhea or any form of abdominal pain. The patient was checked out at an outside hospital and the patient was found to have abnormal troponins and she was referred to us for further care. Noted the patient came into the emergency department and the patient tested positive for COVID-19. No previous history of COVID-19 infection. She has had previous vaccination for COVID-19 at the start of the pandemic. The patient is currently on room air oxygen. The patient had a chest x-ray in the emergency department that showed some vague right perihilar opacity and no previous x-rays for comparison. On a separate note, the patient is known to have history of dermatomyositis. The patient has been maintained on Imuran and prednisone on outpatient basis. His skin lesions have improved considerably and the patient has no significant neuromuscular weakness or muscle aches or pains. CPK is not elevated. Nevertheless, the troponin was elevated at 6.7 and subsequent dropped down to 5.7 and 5.6. No previous history of any coronary artery disease. EKG showed n ormal sinus mechanism. The patient was ruled in for acute non-ST segment elevation myocardial infarction. He did have a bout of atrial fibrillation and currently he is back in normal sinus rhythm. Echocardiogram was ordered and the patient is tentatively scheduled for a cardiac catheterization in a.m. He is currently on aspirin, metoprolol 25 mg twice daily and he was also started on statins. He is also on IV heparin. On 05/06/2024, the patient is being seen for a follow-up. Patient is not having any significant respiratory distress. She has a COVID-19 infection with some limited cough and congestion. At the same time, the patient sustained an acute NSTEMI and a cardiac catheterization was performed today and the patient was found to have subtotal occlusion of the mid LAD and chronically occluded mid circumflex with collaterals from the right coronary artery and mild disease in the RCA and calcified LAD. The patient underwent successful stenting of the mid LAD with reduction of the stenosis. She started on a combination of aspirin and Brilinta. The plan is to treat this patient medically and the patient was need revascularization of the circumflex at a later stage depending on her symptoms. She is currently on room air oxygen with a pulse ox of 97%. She is back on her Imuran 50 mg p.o. 3 times daily and prednisone 5 mg p.o. daily. She is also on aspirin and Brilinta. She is on Aldactone. She is also on metoprolol 50 mg p.o. twice daily and Cozaar 100 mg p.o. daily. She was started on high-dose Lipitor 80 mg p.o. daily. Objective - Vital Signs Vital signs: Vital Signs Temp 98.0 F 05/06/24 08:47 Pulse 64 05/06/24 08:47 Resp 17 05/06/24 08:47 BP 161/72 05/06/24 08:47 Pulse Ox 96 05/06/24 08:47 FiO2 Intake & Output 05/05/24 05/06/24 05/06/24 18:59 06:59 18:59 Intake Total 82.529 600.113 110.575 Balance 82.529 600.113 110.575 Weight 63 kg Intake: IV 0 Intake, IV Titration 82.529 60.113 110.575 Amount Heparin Sod,Pork in 0.45% 82.529 60.113 110.575 NaCl 25,000 unit In 0.45 % NaCl 1 250ml.bag @ 12 UNITS/KG/HR 7.62 mls/hr IV .Q24H [facility] Rx#: [id number] Oral 540 Other: Voiding Method Toilet Toilet Urinal Urinal # Voids 2 - Exam The patient appeared well nourished and normally developed. Vital signs as documented. Head exam is unremarkable. No scleral icterus or corneal arcus noted. Neck is without jugular venous distension, thyromegaly, or carotid bruits. Carotid upstrokes are brisk bilaterally. Lungs are clear to auscultation and percussion. Cardiac exam reveals the PMI to be normally sized and situated. Rhythm is regular. First and second heart sounds normal. No murmurs, rubs or gallops. Abdominal exam reveals normal bowel sounds, no masses, no organomegaly and no aortic enlargement. Extremities are nonedematous and both femoral and pedal pulses are normal. Examination of the skin revealed no evidence of significant rashes, suspicious appearing nevi or other concerning lesions. Neurologically, the patient is awake and alert and the patient does not have any focal neurological deficit. Cranial nerves are essentially intact. - Labs CBC & Chem 7: 05/06/24 06:35 05/06/24 06:35 Labs: Abnormal Lab Results - Last 24 Hours (Table) 05/05/24 05/05/24 05/05/24 Range/Units 08:59 14:07 17:01 RBC (4.30-5.90) m/uL Hgb (13.0-17.5) gm/dL Hct (39.0-53.0) % APTT 31.9 H (22.0-30.0) sec Chloride (98-107) mmol/L Creatinine (0.66-1.25) mg/dL Glucose (74-99) mg/dL POC Glucose (mg/dL) 116 H (70-110) mg/dL Hemoglobin A1c 6.5 H (<=6.0) % 05/05/24 05/06/24 05/06/24 Range/Units 22:16 06:35 06:35 RBC 4.06 L (4.30-5.90) m/uL Hgb 12.8 L (13.0-17.5) gm/dL Hct 38.8 L (39.0-53.0) % APTT 40.1 H (22.0-30.0) sec Chloride 108 H (98-107) mmol/L Creatinine 0.65 L (0.66-1.25) mg/dL Glucose 118 H (74-99) mg/dL POC Glucose (mg/dL) (70-110) mg/dL Hemoglobin A1c (<=6.0) % 05/06/24 Range/Units 06:35 RBC (4.30-5.90) m/uL Hgb (13.0-17.5) gm/dL Hct (39.0-53.0) % APTT 32.2 H (22.0-30.0) sec Chloride (98-107) mmol/L Creatinine (0.66-1.25) mg/dL Glucose (74-99) mg/dL POC Glucose (mg/dL) (70-110) mg/dL Hemoglobin A1c (<=6.0) % Assessment and Plan Plan: Acute COVID-19 infection, limited cough and congestion. No hypoxemia. Chest x- ray shows awake right infrahilar infiltration that needs to be further characterized by CAT scan of the chest. Acute non-ST segment elevation myocardial infarction. EKG findings are nonspecific and a troponin was quite elevated at 6.7 at the time of admission and the troponins are essentially downtrending. The patient underwent a cardiac catheterization and she was found to have subtotal occlusion of the mid LAD and chronically occluded mid circumflex with collaterals from the right coronary artery and mild disease in the RCA and calcified LAD. The patient underwent successful stenting of the mid LAD with reduction of the stenosis. Systolic heart failure with an ejection fraction of 40 to 45% with mild to moderate MR Atrial fibrillation, new onset, currently back into normal sinus mechanism History of dermatomyositis maintained on a combination of Imuran and prednisone outpatient basis Hypertension History of bladder cancer postresection back in January 2023 and the patient received BCG treatment. Plan Patient is relatively asymptomatic regards to COVID-19 Will obtain a CAT scan of the chest, noncontrast CAT scan in a.m. Echocardiogram from 05/05/2024 showed LV function impairment with an ejection fraction of 40 to 45%. Mild to moderate MR. Cardiac catheterization completed and the patient underwent stenting of the mid LAD Continue aspirin and Brilinta Continue metoprolol 25 mg p.o. twice a day Cozaar Continue statins with Lipitor 80 mg p.o. daily Imuran and prednisone has been resumed Will continue to follow Time with Patient: Greater than 30
[2024-05-06 20:08] LABS: Glucose,Whole Blood 114 mg/dL (70-110)
[2024-05-06] MEDS: TICAGRELOR 90 MG TAB PO SCH (20:39)
[2024-05-06] MEDS: METOPROLOL TARTRATE 50 MG TAB PO SCH (20:39)
[2024-05-07 06:12] LABS: Glucose,Whole Blood 158 mg/dL (70-110)
--- NOTE | 2024-05-07 07:25 | CT ---
EXAMINATION TYPE: CT chest wo con DATE OF EXAM: 05/07/2024 6:53 AM COMPARISON: 06/08/2023 CLINICAL INDICATION: Male, 73 years old with history of Right lung opacity, Right lung opacity TECHNIQUE: Axial images were obtained at 5 mm thick sections. Reconstructed images are reviewed on [facility] computer in the coronal plane. Contrast used: mL of , (none if empty) Oral contrast used: (none if empty) CT DLP: 226.7 mGycm, Automated exposure control for dose reduction was used. FINDINGS: Portion of the thyroid visualized is normal. Small infiltrate is in the posterior left lung base. Correlate for atelectasis or pneumonia. Addition al posterior mid right lung infiltrate is present. A few scattered peripheral groundglass opacities m ay be present within the left midlung and posterior upper lung reynoso. Differential could include ate lectasis and pneumonia. Consider atypical pneumonia. No enlarged mediastinal or hilar adenopathy is evident. Scattered small lymph nodes are through the pretracheal space The ascending aorta diameter at the level of the main pulmonary artery is 3.7 cm. The main pulmonary artery diameter at the bifurcation is 3.1 cm. Coronary artery calcifications prese nt. Limited CT sections are obtained through the upper abdomen. There is a 2.7 cm cyst posterior lateral left mid kidney. Vascular calcifications within the aorta. The thoracolumbar junction compression deformity is stable. IMPRESSION: 1. Scattered bilateral lung infiltrates. Differential diagnosis would primarily include atelectasis a nd infectious etiologies such as pneumonia. Consider atypical pneumonia. Follow-up is recommended. [facility], , 05/07/2024 7:22 AM
[2024-05-07 07:37] LABS: African American GFR (CKD) >90 (>60 ml/min/1.73 sqM); Anion Gap 7 mmol/L; Blood Urea Nitrogen 16 mg/dL (9-20); Calcium 9.1 mg/dL (8.4-10.2); Carbon Dioxide 24 mmol/L (22-30); Chloride 105 mmol/L (98-107); Glucose 108 mg/dL (74-99); Non-African American GFR(CKD) >90 (>60 ml/min/1.73 sqM); Potassium 3.9 mmol/L (3.5-5.1); Sodium 136 mmol/L (137-145)
[2024-05-07 07:41] VITALS: TEMP 98
[2024-05-07 11:13] VITALS: BP 123/59; PULSE 82; RESP 17
[2024-05-07 11:53] VITALS: BMI 21.2
[2024-05-07 11:53] LABS: Glucose,Whole Blood 108 mg/dL (70-110)
--- NOTE | 2024-05-07 12:37 | P.PN ---
Subjective HISTORY OF PRESENT ILLNESS: This is a 73-year-old male with a past medical history significant for hypertension and bladder cancer. Patient used to follow in the office with Dr. Childers but has not been seen since June 2018. We have been asked to see the patient in consultation for non-STEMI. Patient examined at the bedside in the emergency room. Patient states over the past few days when he has been checking his blood pressure at home it has been alerting him that his heart rate has been irregular. He states that he also felt his pulse and it was noted to be irregular. [facility] found to have elevated troponins and was transferred to [facility] for further evaluation. Additionally the patient was found to be positive for COVID-19. Patient does report feeling mildly short of breath for the past 4 to 5 days. He denies having any chest pain or pressure. He reports feeling congested and having some phlegm production in the morning. He currently denies any dizziness or lightheadedness. He states that he felt dizzy once recently but his blood pressure was also noted to be low at that time. The patient was found to be in atrial fibrillation on his initial EKG. Subsequent EKG reveals sinus mechanism. The patient denies any known history of atrial fibrillation. DIAGNOSTICS: - EKG reveals atrial fibrillation with heart rate of 100. Repeat EKG reveals sinus mechanism with T wave inversions in V4 and ST depression in V5V6. - Chest xray negative for acute process. - Laboratory data: Troponin 6.710. 5.730. 5.630. - Current home cardiac medication list not updated at the time of examination - No previous echocardiogram, stress test, or cardiac catheterization available in EMR for review 05/07/2024 Patient is status post cardiac catheterization with Dr. Blas yesterday revealing subtotally occluded mid LAD, chronically occluded mid left circumflex with collaterals from the right coronary system, mild disease in the RCA, calcified LAD. Patient underwent stenting of the mid LAD. Patient examined at the bedside. Patient denies chest pain or pressure. He denies shortness of breath. Blood pressure slightly elevated with a reading of 151/75. He is maintaining sinus mechanism. Echocardiogram completed revealing ejection fract ion 40 to 45%, apical septum hypokinesis, apical inferior hypokinesis, mild to moderate MR, mild TR, and no pericardial effusion. Carotid Doppler performed revealing atherosclerotic plaque seen within the carotid bulb without ultrasound evidence for hemodynamically significant stenosis. PHYSICAL EXAM: VITAL SIGNS: Reviewed. GENERAL: Well-developed in no acute distress. HEENT: Head is normocephalic. Pupils are equal, round. Sclerae anicteric. Mucous membranes of the mouth are moist. Neck supple. No JVD or thyromegaly. Bilateral carotid bruit. Right greater than left. LUNGS: Respirations even and unlabored. Lungs diminished bilaterally. HEART: Regular rate and rhythm. S1 and S2 heard. Systolic murmur noted. ABDOMEN: Soft. Nondistended. Nontender. EXTREMITIES: Normal range of motion. No clubbing or cyanosis. Peripheral pulses intact. No lower extremity edema NEUROLOGIC: Awake and alert. Oriented x 3. ASSESSMENT: Acute COVID-19 Non-STEMI, status post cardiac catheterization as above with stenting of the mid LAD New onset paroxysmal atrial fibrillation, currently maintaining sinus mechanism Ischemic cardiomyopathy, 40 to 45% History of hypertension History of bladder cancer with BCG treatment for 6 weeks History of dermatamyositis PLAN: Will hold off on initiating anticoagulation at this point due to one isolated episode of atrial fib Continue additional cardiac medications Patient is stable for discharge home today from a cardaic standpoint Patient to follow-up postdischarge with Dr. Blas Nurse practitioner note has been reviewed by physician. Signing provider agrees with the documented findings, assessment, and plan of care documented by [employer] as a scribe. Objective - Vital Signs Vital signs: Vital Signs Temp 98.0 F 05/07/24 07:39 Pulse 81 05/07/24 07:39 Resp 16 05/07/24 07:39 BP 151/75 05/07/24 07:39 Pulse Ox 98 05/07/24 07:39 FiO2 Intake & Output 05/06/24 05/07/24 05/07/24 18:59 06:59 18:59 Intake Total 392.575 960 240 Output Total 200 Balance 192.575 960 240 Weight 61.5 kg Intake: IV 102 Intake, IV Titration 110.575 Amount Heparin Sod,Pork in 0.45% 110.575 NaCl 25,000 unit In 0.45 % NaCl 1 250ml.bag @ 12 UNITS/KG/HR 7.62 mls/hr IV .Q24H [facility] Rx#: [id number] Oral 180 960 240 Output: Urine 200 Other: Voiding Method Toilet Toilet Toilet Urinal Urinal # Voids 1 4 - Labs CBC & Chem 7: 05/06/24 06:35 05/07/24 06:58 Labs: Abnormal Lab Results - Last 24 Hours (Table) 05/06/24 05/07/24 05/07/24 Range/Units 20:06 06:10 06:58 Sodium 136 L (137-145) mmol/L Glucose 108 H (74-99) mg/dL POC Glucose (mg/dL) 114 H 158 H (70-110) mg/dL
--- NOTE | 2024-05-07 15:49 | P.PN ---
Subjective Progress Note Date: 05/07/24 This is a 73-year-old female patient who is being seen in the emergency department because of some cough and congestion. She denies having any chest pain. She was complaining of some limited shortness of breath. No nausea vomiting or diarrhea or any form of abdominal pain. The patient was checked out at an outside hospital and the patient was found to have abnormal troponins and she was referred to us for further care. Noted the patient came into the emergency department and the patient tested positive for COVID-19. No previous history of COVID-19 infection. She has had previous vaccination for COVID-19 at the start of the pandemic. The patient is currently on room air oxygen. The patient had a chest x-ray in the emergency department that showed some vague right perihilar opacity and no previous x-rays for comparison. On a separate note, the patient is known to have history of dermatomyositis. The patient has been maintained on Imuran and prednisone on outpatient basis. His skin lesions have improved considerably and the patient has no significant neuromuscular weakness or muscle aches or pains. CPK is not elevated. Nevertheless, the troponin was elevated at 6.7 and subsequent dropped down to 5.7 and 5.6. No previous history of any coronary artery disease. EKG showed n ormal sinus mechanism. The patient was ruled in for acute non-ST segment elevation myocardial infarction. He did have a bout of atrial fibrillation and currently he is back in normal sinus rhythm. Echocardiogram was ordered and the patient is tentatively scheduled for a cardiac catheterization in a.m. He is currently on aspirin, metoprolol 25 mg twice daily and he was also started on statins. He is also on IV heparin. On 05/06/2024, the patient is being seen for a follow-up. Patient is not having any significant respiratory distress. She has a COVID-19 infection with some limited cough and congestion. At the same time, the patient sustained an acute NSTEMI and a cardiac catheterization was performed today and the patient was found to have subtotal occlusion of the mid LAD and chronically occluded mid circumflex with collaterals from the right coronary artery and mild disease in the RCA and calcified LAD. The patient underwent successful stenting of the mid LAD with reduction of the stenosis. She started on a combination of aspirin and Brilinta. The plan is to treat this patient medically and the patient was need revascularization of the circumflex at a later stage depending on her symptoms. She is currently on room air oxygen with a pulse ox of 97%. She is back on her Imuran 50 mg p.o. 3 times daily and prednisone 5 mg p.o. daily. She is also on aspirin and Brilinta. She is on Aldactone. She is also on metoprolol 50 mg p.o. twice daily and Cozaar 100 mg p.o. daily. She was started on high-dose Lipitor 80 mg p.o. daily. On 05/07/2024, the patient is being seen for a follow-up. The patient is doing well. No specific complaints. Is on room air oxygen. To complete his workup, and noncontrast CAT scan of the chest was done. I reviewed the CAT scan images and I think the findings are essentially inflammatory, could be related to group is COVID-19 infection. The patient has scattered bilateral pulmonary filtrates that are probably nonmalignant in nature. No evidence of any interstitial lung disease. Otherwise, the patient has no other new complaints. His blood work from today shows a sodium level of 136, potassium level is 3.9, BUN 16 with a creatinine 0.7. He remains on Imuran and he remains on steroids 5 mg of prednisone on a daily basis. No chest pain. No nausea or emesis. No other complaints otherwise. The patient underwent successful stenting of the mid LAD and he remains on a combination of aspirin and Brilinta. He is also on metoprolol 50 mg p.o. twice a day and Cozaar 100 mg p.o. daily and statins. Objective - Vital Signs Vital signs: Vital Signs Temp 98.0 F 05/07/24 07:39 Pulse 82 05/07/24 11:12 Resp 17 05/07/24 11:12 BP 123/59 05/07/24 11:12 Pulse Ox 98 05/07/24 11:12 FiO2 Intake & Output 05/06/24 05/07/24 05/07/24 18:59 06:59 18:59 Intake Total 392.575 960 600 Output Total 200 Balance 192.575 960 600 Weight 61.5 kg 61.5 kg Intake: IV 102 Intake, IV Titration 110.575 Amount Heparin Sod,Pork in 0.45% 110.575 NaCl 25,000 unit In 0.45 % NaCl 1 250ml.bag @ 12 UNITS/KG/HR 7.62 mls/hr IV .Q24H [facility] Rx#: [id number] Oral 180 960 600 Output: Urine 200 Other: Voiding Method Toilet Toilet Toilet Urinal Urinal # Voids 1 4 2 - Exam The patient appeared well nourished and normally developed. Vital signs as documented. Head exam is unremarkable. No scleral icterus or corneal arcus noted. Neck is without jugular venous distension, thyromegaly, or carotid bruits. C arotid upstrokes are brisk bilaterally. Lungs are clear to auscultation and percussion. Cardiac exam reveals the PMI to be normally sized and situated. Rhythm is regular. First and second heart sounds normal. No murmurs, rubs or gallops. Abdominal exam reveals normal bowel sounds, no masses, no organomegaly and no aortic enlargement. Extremities are nonedematous and both femoral and pedal pulses are normal. Examination of the skin revealed no evidence of significant rashes, suspicious appearing nevi or other concerning lesions. Neurologically, the patient is awake and alert and the patient does not have any focal neurological deficit. Cranial nerves are essentially intact. - Labs CBC & Chem 7: 05/06/24 06:35 05/07/24 06:58 Labs: Abnormal Lab Results - Last 24 Hours (Table) 05/06/24 05/07/24 05/07/24 Range/Units 20:06 06:10 06:58 Sodium 136 L (137-145) mmol/L Glucose 108 H (74-99) mg/dL POC Glucose (mg/dL) 114 H 158 H (70-110) mg/dL Assessment and Plan Plan: Acute COVID-19 infection, limited cough and congestion. No hypoxemia. Chest x- ray shows awake right infrahilar infiltration that needs to be further characterized by CAT scan of the chest. Acute non-ST segment elevation myocardial infarction. EKG findings are nonspecific and a troponin was quite elevated at 6.7 at the time of admission and the troponins are essentially downtrending. The patient underwent a cardiac catheterization and she was found to have subtotal occlusion of the mid LAD and chronically occluded mid circumflex with collaterals from the right coronary artery and mild disease in the RCA and calcified LAD. The patient underwent successful stenting of the mid LAD with reduction of the stenosis. Systolic heart failure with an ejection fraction of 40 to 45% with mild to moderate MR Atrial fibrillation, new onset, currently back into normal sinus mechanism History of dermatomyositis maintained on a combination of Imuran and prednisone outpatient basis Hypertension History of bladder cancer postresection back in January 2023 and the patient received BCG treatment. Plan Patient is relatively asymptomatic regards to COVID-19 CAT scan of the chest was noted and the scattered bilateral pulmonary filtrates are possibly inflammatory in nature, post COVID-19. Clinically the patient is asymptomatic. No significant shortness of breath. Echocardiogram from 05/05/2024 showed LV function impairment with an ejection fraction of 40 to 45%. Mild to moderate MR. Cardiac catheterization completed and the patient underwent stenting of the mid LAD Continue aspirin and Brilinta Continue metoprolol 25 mg p.o. twice a day Cozaar Continue statins with Lipitor 80 mg p.o. daily Imuran and prednisone has been resumed The patient will be discharged home today and I recommended him having a follow- up chest x-ray in 3 to 4 weeks time and if the abnormalities persist, the patient will need to see me in the pulmonary clinic in the follow-up.
--- NOTE | 2024-05-07 18:24 | P.DS ---
Providers Date of admission: 05/04/24 21:32 Expected date of discharge: 05/07/24 Attending physician: Mica Patel MD Consults: 05/04/24 21:32 Consult Physician Urgent Consulting Provider: Adilene Higgins Consult Reason/Comments: NSTEMI Do you want consulting provider notified?: Yes 05/05/24 09:48 Consult Physician Routine Consulting Provider: Tyrone Jarquin Consult Reason/Comments: Covid Do you want consulting provider notified?: Yes 05/06/24 12:06 Consult Physician Routine Consulting Provider: Adilene Higgins Consult Reason/Comments: Post Interventional Patient Do you want consulting provider notified?: Already Contacted Primary care physician: Physician Nonstaff Hospital Course: NSTEMI CAD status post LAD stent 05/06/2024 HFrEF EF 40 to 45% Paroxysmal A-fib with RVR Hypertension Dyslipidemia -Cardiology following, Tobacco dependence: Counseled on smoking cessation Diabetes: A1c 6.5, COVID infection Hospital Course: Patient is a 73-year-old male with a past medical history significant for bladder cancer 18mos ago, dermatamyositis, and hypertension presenting as a transfer from [place]. He states that he had initially gone to [place] because his blood pressure cuff at home indicated that he was having an irregular heartbeat. He states that beginning on Friday he had not been feeling well, was fatigued, and had chills, myalgias are arthralgias, dyspnea, cough productive of yellow sputum. He denies chest pain, abdominal pain, nausea/vomiting, diarrhea. At [place] he was found to have elevated troponin and subsequently transferred him here.Initial labs: Troponin x 3 6.71, 5.73, 5.63, COVID-positive. Initial EKG: A-fib with ventricular rate 100 bpm, QTc 417 ms, left ventricular hypertrophy, no ST segment changes. Patient was admitted for further evaluation of elevated troponin, A-fib RVR. Cardiology consulted, recommended to continue IV heparin, obtain TTE, continue aspirin, statin, started on metoprolol tartrate 25 twice daily, carotid duplex ordered, patient to undergo Game Designer on 05/06. Game Designer showed subtotally occluded mid LAD, chronically occluded mid left circumflex with collaterals from the right coronary system, mild decrease in the RCA, calcified LAD, successful stenting of the mid LAD. Patient will continue aspirin and Brilinta for 1 year.Started on spironolactone 25 daily, metoprolol increased to 50 twice daily, Carotid duplex showed atherosclerotic plaque within the carotid bulb without ultrasound evidence for hemodynamically significant stenosis. A1c 6.5, started on Accu-Cheks, carb containing diet. He is a current smoker, counseled on cessation. TTE showed EF of 40 to 45%, mid ventricle and apical hypokinesia. Pt started on guideline directed medical therapy. Discharged with f/u with PCP and cardiology. I spent 34 min coordinating this discharge Gen: In NAD, non-toxic HEENT: normocephalic, atraumatic, hearing acuity is intant, mucous membranes moist CVS: perfusing all extremities well, no pitting edema, Respiratory: symmetric chest expansion, no accessory muscle use, GI: soft, NTTP, ND, : no suprapubic tenderness, no CVA tenderness MSK/Derm: no rashes, cyanosis Neuro: CN II-XII intact, no motor weakness, Psych: cooperative, euthymic mood, judgment and insight is intact Patient Condition at Discharge: Good Plan - Discharge Summary Discharge Rx Participant: No New Discharge Prescriptions: New Spironolactone [Aldactone] 25 mg PO DAILY #30 tab Ticagrelor [Brilinta] 90 mg PO BID #60 tab Metoprolol Tartrate [Lopressor] 50 mg PO BID #60 tab Atorvastatin [Lipitor] 80 mg PO HS #30 tab Nitroglycerin Sl Tabs [Nitrostat] 0.4 mg SUBLINGUAL Q5M PRN #15 tab PRN Reason: Chest Pain Continue azaTHIOprine [Imuran] 50 mg PO TID Sertraline HCl [Zoloft] 25 mg PO DAILY Losartan Potassium 100 mg PO DAILY Aspirin EC [Ecotrin Low Dose] 81 mg PO DAILY predniSONE 5 mg PO DAILY Fluconazole [Diflucan] 100 mg PO DAILY PRN PRN Reason: THRUSH Discontinued atenoloL 25 mg PO DAILY Ibuprofen [Motrin Ib] 200 mg PO Q8H PRN PRN Reason: Fever And/ Or Pain amLODIPine [Norvasc] 10 mg PO DAILY Discharge Medication List Losartan Potassium 100 mg PO DAILY 09/14/20 [History] Sertraline HCl [Zoloft] 25 mg PO DAILY 09/14/20 [History] Aspirin EC [Ecotrin Low Dose] 81 mg PO DAILY 06/07/23 [History] Fluconazole [Diflucan] 100 mg PO DAILY PRN 05/05/24 [History] azaTHIOprine [Imuran] 50 mg PO TID 05/05/24 [History] predniSONE 5 mg PO DAILY 05/05/24 [History] Atorvastatin [Lipitor] 80 mg PO HS #30 tab 05/07/24 [Rx] Metoprolol Tartrate [Lopressor] 50 mg PO BID #60 tab 05/07/24 [Rx] Nitroglycerin Sl Tabs [Nitrostat] 0.4 mg SUBLINGUAL Q5M PRN #15 tab 05/07/24 [Rx] Spironolactone [Aldactone] 25 mg PO DAILY #30 tab 05/07/24 [Rx] Ticagrelor [Brilinta] 90 mg PO BID #60 tab 05/07/24 [Rx] Follow up Appointment(s)/Referral(s): Aaliyah Blas MD [STAFF PHYSICIAN] - 1 Week (Please call to schedule hospital follow up apt. Office is on lunch ) Sahra Mckee FNPBC [REFERRING] - 1 Week (Office is closed for lunch. Please call after lunch to schedule hospital follow up apt. You need a follow up chest xray in about 3 weeks to reevaluate inflammation in lungs post covid. ) Nonstaff,Physician [Primary Care Provider] - 1-2 days Tyrone Jarquin MD [STAFF PHYSICIAN] - 1 Week Patient Instructions/Handouts: *Surgery [facility] - After Heart Catheterization - Baby Attendant Instructions, Heart Attack (DC) Discharge Disposition: HOME SELF-CARE
--- NOTE | 2024-05-08 14:25 | CDI ---
Documentation Clarification Form Date: 05/08/2024 02:17:55 PM From: Margie Ibarra Phone: Admit Date: 05/04/2024 09:32:00 PM Patient Name: Bryce Hogan Visit Number: [id number] Discharge Date: 05/07/2024 01:31:00 PM ATTENTION: The Clinical Documentation Specialists (CDI) and [facility] Coding Staff appreciate your assistance in clarifying documentation. Please respond to the clarification below the line at the bottom and electronically sign. The CDI & [facility] Coding staff will review the response and follow-up if needed. Please note: Queries are made part of the Legal Health Record. If you have any questions, please contact the author of this message via ITS. Doctor/Provider: Ita Gardner Your patient has the documented diagnosis of unspecified CHF HFrEF EF 40 to 45% per 05/06 Progress Note and DCS. Additional information regarding the acuity of CHF is requested. History/Risk Factors: 73yo M, NSTEMI, CADstatus post LAD stent, PAF, HTN, HLD, DMII, COVID, smoker Clinical Indicators: VS/Pulse OX: 05/04 O2 Sat by Pulse 99 98 95 Oximetry Echo: impairedLV function with EF between 40 to 45% 5 with mid ventricle and apical hypokinesia. Mild to moderateMR. Nopericardial effusion Chest X Ray: 05/04 Heart/mediastinum: Cardiomediastinal silhouette is unremarkable. Treatment: monitored In your professional opinion, can you please clarify the acuity of CHF if known? [ ] Acute Systolic Heart Failure (reduced EF) [ ] Present on Admission [ ] Not Present on Admission [ x ] Chronic Systolic Heart Failure (reduced EF) [ ] Acute on Chronic Systolic Heart Failure (reduced EF) [ ] Present on Admission [ ] Not Present on Admission [ ] Other, please specify [ ] Unable to determine (Template Last Revised: April 2020) MTDD
== END 2024-05-07 13:31 | disposition home or self-care (01) | DRG 321 ==
LOC: EC 17:40 → 3SCARD 21:32
PROVIDERS: ADMIT Internal Medicine; ATTEND Internal Medicine
PROC: B2111ZZ Fluoroscopy of Multiple Coronary Arteries using Low Osmolar Contrast (ICD-10-PCS; 2024-05-06)
PROC: 027035Z Dilation of Coronary Artery, One Artery with Two Drug-eluting Intraluminal Devices, Percutaneous Approach (ICD-10-PCS; principal; 2024-05-06 09:45)
PROC: B240ZZ3 Ultrasonography of Single Coronary Artery, Intravascular (ICD-10-PCS; 2024-05-06 09:45)
PROC: 4A023N7 Measurement of Cardiac Sampling and Pressure, Left Heart, Percutaneous Approach (ICD-10-PCS; 2024-05-06 09:45)
DX: I21.4 Non-ST elevation (NSTEMI) myocardial infarction (principal); U07.1 COVID-19; M33.90 Dermatopolymyositis, unspecified, organ involvement unspecified; I50.22 Chronic systolic (congestive) heart failure; I11.0 Hypertensive heart disease with heart failure; E11.9 Type 2 diabetes mellitus without complications; I48.0 Paroxysmal atrial fibrillation; I25.10 Atherosclerotic heart disease of native coronary artery without angina pectoris; I25.5 Ischemic cardiomyopathy; E78.5 Hyperlipidemia, unspecified; Z85.51 Personal history of malignant neoplasm of bladder; Z79.899 Other long term (current) drug therapy; Z79.82 Long term (current) use of aspirin; Z87.891 Personal history of nicotine dependence; Z71.6 Tobacco abuse counseling; Z79.52 Long term (current) use of systemic steroids
CPT/HCPCS: 36415; 71046; 71250; 80048; 80061; 83036; 83735; 84443; 84484; 85025; 85379; 85730; 87636; 92978; 93005; 93306; 93454; 93880; 96365; 96366; 99291